=== PATIENT | female | born 1970 | race Caucasian/White ===

== ENCOUNTER → 2020-09-01 14:20 | Outpatient (BNVA) | payer OTHER, SELFPAY | PROVIDERS: Visit Provider Nurse Practitioner Family | DX: Z76.89 Persons encountering health services in other specified circumstances (principal) ==

== ENCOUNTER 2020-09-06 15:16 | Outpatient (REF) | payer OTHER, SELFPAY ==
[2020-09-06 15:53] LABS: Hematocrit 35.9 % (37-47); Hemoglobin 12.3 g/dl (12.0-16.0); Mean Corpuscular HGB Conc 34.3 g/dl (31.0-35.0); Mean Corpuscular Hemoglobin 32.3 pg (27.0-33.0); Mean Corpuscular Volume 94.2 fL (80-98); Mean Platelet Volume 9.2 fL (9.4-12.3); Platelet Count 271 X10*3/uL (160-400); Red Blood Count 3.81 X10*6/uL (4.20-5.50); Red Cell Distribution Width 12.1 % (11.0-16.0); White Blood Count 6.4 X10*3/uL (4.8-10.8)
[2020-09-06 16:26] LABS: Alanine Aminotransferase 13 U/L (0-31); Albumin Level 4.1 g/dL (3.5-5.0); Alkaline Phosphatase 49 U/L (39-117); Anion Gap 10 (12-20); Aspartate Amino Transferase 15 U/L (5-31); Bilirubin Total 0.4 mg/dL (0.0-1.0); Blood Urea Nitrogen 14 mg/dL (9-16); Calcium 8.6 mg/dL (8.4-10.2); Carbon Dioxide 26 mmol/L (22-29); Chloride 105 mmol/L (96-108); Estimated Glomerular Filt Rate > 60; Glucose Random 119 mg/dL (60-115); Potassium 4.1 mmol/l (3.3-5.1); Sodium 137 mmol/L (135-145); Total Protein 6.8 g/dL (6.5-8.0)
== END 2020-09-06 15:17 | disposition home or self-care (01) ==
LOC: HO.LAB 15:16
PROVIDERS: PCP Physician Assistant Medical; Visit Provider Nurse Practitioner Family
DX: Z12.11 Encounter for screening for malignant neoplasm of colon (principal)
CPT/HCPCS: 36415; 80053; 85027

== ENCOUNTER 2020-10-05 09:04 | Outpatient (REF) | payer OTHER, SELFPAY ==
[2020-10-05 11:03] LABS: Cholesterol 226 mg/dL; HDL Cholesterol 55 mg/dL; LDL Cholesterol Calculated 149 mg/dl; Triglycerides 114 mg/dL
== END 2020-10-05 09:05 | disposition home or self-care (01) ==
LOC: HO.LAB 09:04
PROVIDERS: PCP Nurse Practitioner; Visit Provider Nurse Practitioner
DX: E78.5 Hyperlipidemia, unspecified (principal)
CPT/HCPCS: 80061

== ENCOUNTER 2020-10-10 07:15 | Outpatient (REF) | payer OTHER, SELFPAY | END 2020-10-10 07:16 | disposition home or self-care (01) | LOC: HO.LAB 07:15 | PROVIDERS: Visit Provider Internal Medicine | DX: Z20.828 Contact with and (suspected) exposure to other viral communicable diseases (principal) | CPT/HCPCS: C9803; U0003 ==

== ENCOUNTER 2020-10-17 15:25 | Outpatient (REF) | payer OTHER, SELFPAY ==
--- NOTE | 2020-10-17 15:28 | MM_ITS ---
EXAMINATION: MM SCREENING DIGITAL BREAST TOMOSYNTHESIS, BILATERAL CLINICAL INFORMATION: Screening. Asymptomatic. The lifetime risk of breast cancer based on the Tyrer-Cuzick Model is 14%. COMPARISON: Mammography: 08/28/2019, 08/11/2018, 07/15/2017, 07/11/2016 TECHNIQUE: Digital breast tomosynthesis is performed in both the craniocaudal and mediolateral oblique views along with computer-aided detection (CAD). Synthesized 2D images are generated from the tomosynthesis. Additional exaggerated left CC view is provided. FINDINGS: The breasts are heterogeneously dense, which may obscure small masses (ACR BI-RADS breast composition Category c). There is a fine fibronodular parenchymal pattern. There are no abnormal calcifications. The bilateral axilla and skin contours are unremarkable. Right breast shows no interval mass or architectural abnormality or developing density. Left breast has curvilinear focal asymmetric density posterior inferior medial quadrant measuring approximately 0.5 x 0.5 x 1.2 cm. There is questionable fatty tissue composition centrally within the density on the CC tomography. The finding represents change from prior exams. Patient will be recalled for additional imaging. MM/MM tomosynthesis screening BI IMPRESSION: 1. Left: Focal asymmetric density posterior inferior medial breast 0.5 x 0.5 x 1.2 cm. 2. Right: No mammographic evidence of malignancy. ASSESSMENT: BI-RADS 0: Incomplete - Need Additional Imaging Evaluation RECOMMENDATION: 1. Additional views of the left breast (spot 3-D CC, spot 3-D ML). 2. Targeted ultrasound left breast. 3. Radiology department staff will contact the patient for additional imaging. This patient's information was entered into a reminder system with a target due date for their next mammogram.
== END 2020-10-17 15:26 | disposition home or self-care (01) ==
LOC: HO.MAMMO 15:25
PROVIDERS: PCP Physician Assistant Medical; Visit Provider Internal Medicine
DX: Z12.31 Encounter for screening mammogram for malignant neoplasm of breast (principal)
CPT/HCPCS: 77063; 77067

== ENCOUNTER 2020-11-03 08:58 | Outpatient (REF) | payer OTHER, SELFPAY ==
--- NOTE | 2020-11-03 09:04 | US_ITS ---
EXAMINATION: MM DIAGNOSTIC DIGITAL BREAST TOMOSYNTHESIS, RIGHT US DIAGNOSTIC ULTRASOUND BREAST, RIGHT CLINICAL INFORMATION: Recall from screening for curvilinear focal asymmetric density posterior inferior medial left breast with questionable central fatty tissue composition. TC score 14%. COMPARISON: Mammography: 10/17/2020, 08/28/2019, 08/11/2018 TECHNIQUE: Digital breast tomosynthesis is performed. 2D images are generated from the tomosynthesis. The following views are obtained: Spot CC, spot ML x2, spot MLO. Ultrasound left breast lower inner quadrant. Grayscale imaging and color Doppler are performed without and with harmonics. FINDINGS: There are scattered areas of fibroglandular density (ACR BI-RADS breast composition Category b). This area splays on the spot CC view and there is central fatty attenuation suggesting either an oil cyst and/or island of mixed fatty/fibroglandular tissue. The finding is not demonstrated on the spot ML or spot MLO views with certainty. In retrospect, the MLO projections from 2018 and 2017 suggest similar oval asymmetry inferior posterior breast, although not as well appreciated on prior CC views. Targeted ultrasound left breast demonstrates benign appearing oval area 1.1 x 0.7 x 0.4 cm with central tubular hypoechoic component and subtle surrounding peripheral hyperechogenic component. No posterior shadowing. The ultrasound appearance is suggestive of fat necrosis. Results are discussed with the patient and her spouse at time of visit. The findings are benign appearing. Patient does not recall prior trauma to the inferomedial left breast. As a precaution, short interval 6 month follow up left diagnostic 3D mammography is recommended to confirm stability. US/US breast LT limited IMPRESSION: Additional views and targeted ultrasound demonstrates benign-appearing finding in the posterior inferior medial left breast, possibly sequela from prior remote trauma. ASSESSMENT: BI-RADS 3: Probably Benign RECOMMENDATION: Diagnostic 3-D mammography left breast in 6 months. This patient's information was entered into a reminder system with a target due date for their next mammogram.
== END 2020-11-03 08:59 | disposition home or self-care (01) ==
LOC: HO.MAMMO 08:58
PROVIDERS: PCP Obstetrics & Gynecology; Visit Provider Internal Medicine
DX: R92.2 Inconclusive mammogram (principal)
CPT/HCPCS: 76642; 77065

== ENCOUNTER 2020-12-08 10:59 | Day surgery (SDC) | payer OTHER, SELFPAY ==
[2020-10-24 18:44] VITALS: BMI 24.7
--- NOTE | 2020-12-07 09:26 | P.CONAN_ITS ---
Documented by User: Kina Key 12/07/20 09:27 HPI - Anesthesia Eval Consult details Narrative: 50yo F for Colonoscopy PMFSH Past Medical History Medical History HTN (hypertension) Hyperlipidemia Seasonal allergies Family History Family History Mother Hx of cancer of lung Father Hx of congestive heart failure Surgical History Surgical History Cystocele History of cholecystectomy Recent surgical procedure on lower extremity Social History Social History Household Members: Spouse and Children Housing: House Alcohol intake: current Alcohol intake frequency: holidays/special occasions only Smoking Status: Never smoker Second Hand Smoke Exposure: No Use of substances other than those prescribed or required for medical reasons: No Advance Directives: No Advance Directives Information Provided: No Advance Directives on File: No Recently lost weight without trying: Unsure service: No Current occupational status: employed 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 Allergies Allergy/AdvReac Type Severity Reaction Status Date / Time amoxicillin [AMOXICILLIN] Allergy Mild RASH Verified 12/08/20 11:51 Home Medications Medication Instructions Recorded Confirmed Type cetirizine 10 mg capsule 10 mg PO DAILY 09/01/20 10/24/20 History lisinopril 5 mg tablet 5 mg PO DAILY 09/01/20 10/24/20 History montelukast 10 mg tablet 10 mg PO DAILY 09/01/20 10/24/20 History Exam Exam Date and Time: December 07, 2020 0926 Height,Weight and Vital Signs: Height 5 ft 3 in Weight 63.503 kg Pertinent Lab Results Pertinent Lab Results: Laboratory Tests 09/06/20 09/06/20 15:45 15:45 WBC 6.4 Hgb 12.3 Hct 35.9 L Plt Count 271 Sodium 137 Potassium 4.1 Chloride 105 Carbon Dioxide 26 BUN 14 Creatinine 0.82 Assessment and Plan Assessment Anesthesia Assessment: Chart Reviewed Documented by User: Pily Barnett 12/08/20 12:21 [facility] Past Medical History Medical History HTN (hypertension) Hyperlipidemia Seasonal allergies Family History Family History Mother Hx of cancer of lung Father Hx of congestive heart failure Family history of problems with anesthesia: No Surgical History Surgical History Cystocele History of cholecystectomy Recent surgical procedure on lower extremity History of Problems with Anesthesia: No Social History Social History Household Members: Spouse and Children Housing: House Alcohol intake: current Alcohol intake frequency: holidays/special occasions only Smoking Status: Never smoker Second Hand Smoke Exposure: No Use of substances other than those prescribed or required for medical reasons: No Advance Directives: No Advance Directives Information Provided: No Advance Directives on File: No Recently lost weight without trying: Unsure service: No Current occupational status: employed 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 Meds Allergies Allergy/AdvReac Type Severity Reaction Status Date / Time amoxicillin [AMOXICILLIN] Allergy Mild RASH Verified 12/08/20 11:51 Home Medications Medication Instructions Recorded Confirmed Type cetirizine 10 mg capsule 10 mg PO DAILY 09/01/20 10/24/20 History lisinopril 5 mg tablet 5 mg PO DAILY 09/01/20 10/24/20 History montelukast 10 mg tablet 10 mg PO DAILY 09/01/20 10/24/20 History Exam Height,Weight and Vital Signs: Vital Signs Temp Pulse Resp BP Pulse Ox 12/08/20 11:26 97.8 F 76 16 105/72 99 Airway Mallampati Class: II TM Dist: >3cm Neck ROM: Full Heart: RRR Lungs: CTAB Assessment and Plan Assessment Anesthesia Assessment: Anesthesia Plan Discussed and Chart Reviewed Final Anesthetic Review NPO: Yes ASA Class: II Final Preanesthetic Review: No Changes in Pt Med Stat, Meds/Allgs Chart Reviewed, Consent Obtained/Reviewed and Anes Risks/Benef Reviewed Patient Risk: Low Procedure Risk: Low Assessment/Block/Sedation in SS: Assess/Block/Sedation-SS Anesthetic Plan Anesthetic Plan: MAC: Disposition: Standard PACU
[2020-12-08 11:26] VITALS: BP 105/72; PULSE 76; RESP 16; TEMP 36.6; O2SAT 99
[2020-12-08] MEDS: Lactated Ringers 1,000 ML 100 ML IVCONT (11:52)
--- NOTE | 2020-12-08 12:33 | MHC.SHP ---
Pre-Procedural Eval Section B Chief Complaint: Screening Relevant Family History (Specify if Yes): No Relevant Social History: None Present Medications: see Short Stay Collaborative assessment Medical History: Significant History (HTN (hypertension) Hyperlipidemia Seasonal allergies) History of Previous Operations: Relevant previous surgery/procedure and date(s) (Cystocele, History of cholecystectomy) Allergies: Allergies Allergy/AdvReac Type Severity Reaction Status Date / Time amoxicillin [AMOXICILLIN] Allergy Mild RASH Verified 12/08/20 11:51 Review of Systems Sugical H&P ROS: Negative: Constitution, Cardiovascular, Respiratory, Neurological, Psychiatric, Hem-Onc, Allergic/Immunologic, Gastrointestinal, Genitourinary, Musculoskeletal, Integumentary, Endocrine and Eyes/Ears/Nose/Throat Exam Surgical H&P Exam: Normal: HEENT, Normal: Heart, Normal: Lungs, Normal: Extremities, Normal: Abdomen, Normal: Skin and Normal: Neurological Plan Diagnosis/Plan: Unchanged I have reviewed the history and physical and performed a pertinent physical examination on my patient. No changes have occurred unless specified.
--- NOTE | 2020-12-08 12:34 | P.OP_ITS ---
Operative Note Operative Note Date of Service: 12/08/20 Narrative: Operative Information Procedure Description: Colonoscopy COLONOSCOPY Instrument: Olympus variable stiffness pediatric scope 190L Colonoscopy Monitoring: Vital signs and clinical assessment, continuous EKG monitoring, Pulse oximetry, Carbon Dioxide monitoring and blood pressure monitoring were done throughout the procedure. Colon withdrawal time was 9 minutes. Procedure: The patient was placed in the left lateral decubitis position and pre-procedure medications were administered. After a digital rectal examination of the ano-rectum, the video colonoscope was inserted into the rectum and advanced through the colon to the cecum/TI. The colonoscope was slowly withdrawn in a retrograde panoramic fashion and the colon mucosa was carefully examined including a retroflexed view of the rectum. Findings and interventions are described below. Procedure Difficulty:easy Findings: Terminal Ileum-normal Cecum:normal Ascending Colon: few scattered diverticula noted Transverse Colon -normal Descending Colon:normal Sigmoid Colon: many small diverticula seen Rectum: Retroflexion with medium sized internal hemorrhoids, grade I Anorectum - normal Colon preparation: [place] Bowel Preparation Scale Right colon; 3 Transverse colon: 3 Left colon; 3 (0 = Unprepared colon segment with mucosa not seen due to solid stool that cannot be cleared. 1 = Portion of mucosa of the colon segment seen, but other areas of the colon segment not well seen due to staining, residual stool and/or opaque liquid. 2 = Minor amount of residual staining, small fragments of stool and/or opaque liquid, but mucosa of colon segment seen well. 3 = Entire mucosa of colon segment seen well with no residual staining, small fragments of stool or opaque liquid) Impression and Post Procedure Diagnosis: internal hemorrhoids diverticular disease Plan: High fiber diet leaflet Avoid straining at stool, epsom salts and sitz bath, anusol supps or cream Repeat Colonoscopy in 10 years or earlier if clinically indicated Above findings were reviewed with the patient and relevant handouts were provided if indicated.
--- NOTE | 2020-12-08 12:34 | PM.OP ---
Brief Operative Note Date of Service: 12/08/20 Pre-op diagnosis: colon screening Post-op diagnosis: same Procedure: see op note Surgeon: Jesus Baum MD Anesthesia: MAC Estimated blood loss (mL): 0 Condition: stable Disposition: PACU
[2020-12-08 13:20] VITALS: BP 94/54; PULSE 83; RESP 16; TEMP 36.1; O2SAT 100
[2020-12-08 13:35] VITALS: BP 102/68; PULSE 89; RESP 16; TEMP 36.1; O2SAT 98
--- NOTE | 2020-12-08 14:11 | HO.POSTANES ---
Post Anesthesia Evaluation Post Anesthesia Evaluation Vital Signs: Vital Signs Temp Pulse Resp BP Pulse Ox 12/08/20 13:35 97.0 F 89 16 102/68 98 12/08/20 13:20 97 F 83 16 94/54 L 100 12/08/20 11:26 97.8 F 76 16 105/72 99 Anesthesia: General (TIVA) Mental Status: Awake Pain Control: Satisfactory Nausea/Vomiting: None Hydration: Adequate Anesthesia-Related Issues: No Anes. Related Issues
== END 2020-12-08 14:13 | disposition home or self-care (01) ==
PROVIDERS: PCP Nurse Practitioner; Visit Provider Internal Medicine Gastroenterology
PROC: 0DJD8ZZ Inspection of Lower Intestinal Tract, Via Natural or Artificial Opening Endoscopic (ICD-10-PCS; CPT 45378; principal; 2020-12-08 12:10)
DX: Z12.11 Encounter for screening for malignant neoplasm of colon (principal); K57.30 Diverticulosis of large intestine without perforation or abscess without bleeding; K64.0 First degree hemorrhoids; I10 Essential (primary) hypertension; Z90.49 Acquired absence of other specified parts of digestive tract; Z79.899 Other long term (current) drug therapy; Z88.0 Allergy status to penicillin
CPT/HCPCS: 45378

== ENCOUNTER → 2021-01-04 14:39 | Outpatient (BNVA) | payer OTHER, SELFPAY | PROVIDERS: PCP Nurse Practitioner; Visit Provider Nurse Practitioner Family ==

== ENCOUNTER 2021-05-18 12:56 | Outpatient (REF) | payer OTHER, SELFPAY ==
--- NOTE | ~2021-05-18 | MM_ITS ---
EXAMINATION: MM DIAGNOSTIC DIGITAL BREAST TOMOSYNTHESIS, LEFT CLINICAL INFORMATION: Left breast density. COMPARISON: Mammography: 11/03/2020 and studies dating back to 06/18/2012. TECHNIQUE: Digital breast tomosynthesis is performed. 2D images are generated from the tomosynthesis. The following views are obtained: Full-field mediolateral oblique and craniocaudal views. FINDINGS: The breasts are extremely dense, which lowers the sensitivity of mammography (ACR BI-RADS breast composition Category d). There is a stable parenchymal pattern present with no new abnormal dominant mass or suspicious grouping of microcalcifications. Density about the inferior medial aspect of the left breast is again evident. Results are provided to the patient at time of visit by the technologist. MM/MM tomosynthesis added views L IMPRESSION: Stable appearance of the left breast. Recommend 6 month follow-up bilateral mammography. ASSESSMENT: BI-RADS 3: Probably Benign. RECOMMENDATION: Diagnostic mammography in 6 months. This patient's information was entered into a reminder system with a target due date for their next mammogram.
== END 2021-05-18 12:57 | disposition home or self-care (01) ==
LOC: HO.MAMMO 12:56
PROVIDERS: PCP Internal Medicine; Visit Provider Internal Medicine
DX: R92.2 Inconclusive mammogram (principal)
CPT/HCPCS: 77061; 77065

== ENCOUNTER 2021-08-01 07:36 | Outpatient (REF) | payer OTHER, SELFPAY ==
[2021-08-01 10:40] LABS: Hematocrit 36.3 % (37-47); Hemoglobin 12.5 g/dl (12.0-16.0); Mean Corpuscular HGB Conc 34.4 g/dl (31.0-35.0); Mean Corpuscular Volume 92.8 fL (80-98); Mean Platelet Volume 9.5 fL (9.4-12.3); Platelet Count 280 X10*3/uL (160-400); Red Blood Count 3.91 X10*6/uL (4.20-5.50); Red Cell Distribution Width 12.2 % (11.0-16.0); White Blood Count 6.3 X10*3/uL (4.8-10.8)
[2021-08-01 11:05] LABS: Alanine Aminotransferase 18 U/L (0-31); Albumin Level 4.2 g/dL (3.5-5.0); Alkaline Phosphatase 53 U/L (39-117); Anion Gap 11 (12-20); Aspartate Amino Transferase 18 U/L (5-31); Bilirubin Total 0.6 mg/dL (0.0-1.0); Blood Urea Nitrogen 13 mg/dL (9-16); Calcium 9.8 mg/dL (8.4-10.2); Carbon Dioxide 26 mmol/L (22-29); Chloride 104 mmol/L (96-108); Cholesterol 177 mg/dL; Estimated Glomerular Filt Rate > 60; Glucose Fasting 95 mg/dL (60-99); HDL Cholesterol 53 mg/dL; LDL Cholesterol Calculated 90 mg/dl; Potassium 4.3 mmol/L (3.3-5.1); Sodium 137 mmol/L (135-145); Total Protein 6.8 g/dL (6.5-8.0); Triglycerides 172 mg/dL
== END 2021-08-01 07:37 | disposition home or self-care (01) ==
LOC: HO.10HDL 07:36
PROVIDERS: Visit Provider Internal Medicine
DX: I10 Essential (primary) hypertension (principal); E78.00 Pure hypercholesterolemia, unspecified
CPT/HCPCS: 36415; 80053; 80061; 85027

== ENCOUNTER 2021-11-21 12:30 | Outpatient (REF) | payer OTHER, SELFPAY ==
--- NOTE | ~2021-11-21 | MM_ITS ---
EXAMINATION: MM DIAGNOSTIC DIGITAL BREAST TOMOSYNTHESIS, BILATERAL CLINICAL INFORMATION: Due for yearly. Also follow-up probable benign focal asymmetric density posterior inferior medial left breast, possibly sequela from prior remote trauma or underwater bra. The lifetime risk of breast cancer based on the Tyrer-Cuzick Model is 16%. COMPARISON: Mammography: 05/18/2021, 11/03/2020, 10/17/2020 (BI-RADS 0), 08/28/2019; targeted left breast ultrasound 11/03/2020. TECHNIQUE: Digital breast tomosynthesis is performed in both the craniocaudal and mediolateral oblique views along with computer-aided detection (CAD). Synthesized 2D images are generated from the tomosynthesis. FINDINGS: The breasts are heterogeneously dense, which may obscure small masses (ACR BI-RADS breast composition Category c). Fibronodular parenchymal pattern is similar to prior studies. There is no interval mass or architectural abnormality or developing density. The nodular focal asymmetry with associated central fatty composition posterior inferior medial left breast is stable in size and contour. Left breast will be reassessed again in 6 months. Neither breast shows abnormal calcifications. The axilla and skin contours are unremarkable. Results are discussed with the patient at time of visit. MM/MM tomosynthesis diagnostic BI IMPRESSION: 1. Left: Probable benign asymmetric density posterior inferior medial breast stable. 2. Right: No mammographic evidence of malignancy. ASSESSMENT: BI-RADS 3: Probably Benign RECOMMENDATION: Diagnostic left mammography in 6 months. This patient's information was entered into a reminder system with a target due date for their next mammogram.
== END 2021-11-21 12:31 | disposition home or self-care (01) ==
LOC: HO.MAMMO 12:30
PROVIDERS: Absent Provider Obstetrics & Gynecology; PCP Internal Medicine; Visit Provider Internal Medicine
DX: R92.2 Inconclusive mammogram (principal)
CPT/HCPCS: 77062; 77066

== ENCOUNTER 2022-05-29 12:49 | Outpatient (REF) | payer OTHER, SELFPAY ==
--- NOTE | ~2022-05-29 | MM_ITS ---
EXAMINATION: MM DIAGNOSTIC DIGITAL BREAST TOMOSYNTHESIS, LEFT CLINICAL INFORMATION: Short interval six-month follow-up probable benign focal asymmetric density posterior inferior medial left breast, possibly sequela from prior remote trauma or underwire bra. The lifetime risk of breast cancer based on the Tyrer-Cuzick Model is 15%. COMPARISON: Mammography: 11/21/2021, 05/18/2021, 11/03/2020, 10/17/2020 (BI-RADS 0), 08/28/2019, 08/11/2018, 07/15/2017, 07/11/2016; left breast ultrasound 11/03/2020. TECHNIQUE: Digital breast tomosynthesis is performed in both the craniocaudal and mediolateral oblique views along with computer-aided detection (CAD). Synthesized 2D images are generated from the tomosynthesis. Additional spot left MLO view is provided. FINDINGS: The breasts are heterogeneously dense, which may obscure small masses (ACR BI-RADS breast composition Category c). There is fine fibronodular parenchymal pattern similar to prior exams. There is no interval mass or architectural abnormality. The probable benign density for follow-up posterior lower inner quadrant with central fatty tissue composition is stable to borderline decreased since 10/17/2020. There is no developing density or interval architectural changes. Finding will be reassessed again at time of annual bilateral mammography, due in 6 months. Results are discussed with the patient at time of visit. MM/MM tomosynthesis diagnostic LT IMPRESSION: The asymmetric density with central fatty tissue composition posterior inferior medial left breast is stable to borderline decreased since 10/17/2020. ASSESSMENT: BI-RADS 3: Probably Benign RECOMMENDATION: Diagnostic mammography at time of annual bilateral exam, due in 6 months. This patient's information was entered into a reminder system with a target due date for their next mammogram.
== END 2022-05-29 12:50 | disposition home or self-care (01) ==
LOC: HO.MAMMO 12:49
PROVIDERS: Visit Provider Internal Medicine
DX: R92.2 Inconclusive mammogram (principal)
CPT/HCPCS: 77061; 77065

== ENCOUNTER 2022-06-01 10:56 | Outpatient (REF) | payer OTHER, SELFPAY ==
--- NOTE | ~2022-06-01 | US_ITS ---
EXAMINATION: US DIAGNOSTIC ULTRASOUND BREAST, LEFT CLINICAL INFORMATION: Follow-up probable benign focal asymmetric density posterior inferior medial left breast. COMPARISON: Targeted left breast ultrasound 11/03/2020; mammography 05/29/2022 and prior exams dating back to 06/30/2015. TECHNIQUE: Ultrasound left breast is targeted to the posterior lower inner quadrant using grayscale imaging and color Doppler without and with harmonics. FINDINGS: The ultrasound finding for follow-up is similar in size, contour, and echogenicity to prior ultrasound 11/03/2020. The lesion measures 1.1 cm in greatest dimension and has central tubular hypoechoic component. The margins appear smooth. There is no increased or decreased through transmission of sound and no associated color flow. This likely corresponds to the finding on mammography under surveillance. Results are discussed with the patient and her spouse at time of visit. The ultrasound finding likely corresponds to the mammographic lesion. There is no decrease of the mammographic finding during surveillance to confirm simple fat necrosis. Differential considerations include focal fibrosis, PASH, chronic fat necrosis, or other lesion. The lack of change during surveillance is reassuring. Management options were discussed. Patient is in favor of ultrasound-guided core biopsy to confirm benignity. US/US breast LT limited IMPRESSION: -Ultrasound finding is stable from prior targeted ultrasound 11/03/2020. Finding likely corresponds to the mammographic lesion under surveillance, possibly focal fibrosis, chronic fat necrosis, or PASH. ASSESSMENT: BI-RADS 4: Suspicious (subcategory 4A: Low suspicion for malignancy) RECOMMENDATION: Ultrasound-guided core biopsy left breast posterior lower inner quadrant. This patient's information was entered into a reminder system with a target due date for their next mammogram.
== END 2022-06-01 10:57 | disposition home or self-care (01) ==
LOC: HO.MAMMO 10:56
PROVIDERS: Visit Provider Internal Medicine
DX: R92.2 Inconclusive mammogram (principal)
CPT/HCPCS: 76642

== ENCOUNTER 2022-06-07 10:20 | Outpatient (REF) | payer OTHER, SELFPAY ==
--- NOTE | ~2022-06-07 | MM_ITS ---
PROCEDURE: US-GUIDED BREAST BIOPSY, LEFT CLINICAL INFORMATION: Indeterminate mass on ultrasound. COMPARISON: 06/01/2022 and studies dating back to 07/11/2016. PROCEDURAL DETAILS: The details of the procedure, as well as the risks, benefits, and alternatives to the procedure were explained to the patient in detail and all of her questions were answered, after which written informed consent was obtained. Site and side were confirmed. Prior to the procedure, sonography revealed a heterogeneous region with hyperechoic outer portion and tubular hypoechoic region about the deep lower inner breast. A time-out was performed, the lesion intended for biopsy was targeted, and the skin of the left breast was then prepped and draped in the usual sterile fashion. Using sonographic guidance, sterile technique, and 1% lidocaine without epinephrine for local anesthesia, multiple automated core biopsies were obtained through the targeted area with a 14G spring loaded Achieve core biopsy device. There was real-time confirmation of appropriate needle passage. Sampling was documented. At the completion of tissue sampling, a single coil-shaped metallic clip was deposited at the biopsy site. There was no evidence of immediate complication. SPECIMEN: An appropriate sample was obtained. DIGITAL POSTPROCEDURE MAMMOGRAPHY: Breast density: The tissue is heterogeneously dense which may obscure small masses. BI-RADS version 5, category C. There are no new mammographic findings demonstrated. The postprocedure 2-view direct digital mammogram reveals satisfactory positioning of the biopsy clip. The clip corresponds to the mammographic abnormality that was seen. The patient tolerated the procedure well and, after assuring adequate hemostasis, was discharged in good condition after reviewing postbiopsy breast care instructions. Final pathology results are pending. MM/MM diagnostic mammo unilat LT IMPRESSION: 1. No immediate complication from ultrasound-guided percutaneous biopsy left breast. 2. Ultrasound was used to localize and guide marker clip placement. 3. The 2-view direct digital postprocedure mammogram reveals satisfactory positioning of the biopsy clip. 4. Final pathology results are pending. A separate report with final recommendations will be issued once these results are made available.
[2022-06-07] MEDS: Lidocaine HCl 1 % 20 ML VIAL 10 ML SUBCUT (11:52)
== END 2022-06-07 10:21 | disposition home or self-care (01) ==
LOC: HO.MAMMO 10:20
PROVIDERS: Visit Provider Surgery
DX: N63.24 Unspecified lump in the left breast, lower inner quadrant (principal)
CPT/HCPCS: 19083; 77062; 77065; 88305; A4648

== ENCOUNTER 2022-12-03 13:00 | Outpatient (REF) | payer BC, SELFPAY ==
--- NOTE | ~2022-12-03 | MM_ITS ---
EXAMINATION: MM DIAGNOSTIC DIGITAL BREAST TOMOSYNTHESIS, BILATERAL CLINICAL INFORMATION: Due for yearly. Benign left breast ultrasound-guided biopsy 06/07/2022 (benign breast tissue with fibrosis and patchy pseudoangiomatous stromal hyperplasia; no atypia or malignancy identified. The lifetime risk of breast cancer based on the Tyrer-Cuzick Model is 16%. COMPARISON: Mammography: 06/07/2022, 05/29/2022, 11/21/2021, 05/18/2021, 11/03/2020, 10/17/2020, 08/28/2019. TECHNIQUE: Digital breast tomosynthesis is performed in both the craniocaudal and mediolateral oblique views along with computer-aided detection (CAD). Synthesized 2D images are generated from the tomosynthesis. FINDINGS: The breasts are heterogeneously dense, which may obscure small masses (ACR BI-RADS breast composition Category c). Findings fibronodular parenchymal pattern is similar to prior studies. There is no developing density or interval mass or architectural abnormality or abnormal calcifications. The axilla and skin contours are unremarkable. There is a biopsy clip marker posterior lower inner left breast overlying incidental chronic parenchymal density stable to slightly decreased. Results are discussed with the patient at time of visit. MM/MM tomosynthesis diagnostic BI IMPRESSION: No mammographic evidence of malignancy. ASSESSMENT: BI-RADS 2: Benign RECOMMENDATION: Routine annual mammography screening. This patient's information was entered into a reminder system with a target due date for their next mammogram.
== END 2022-12-03 13:01 | disposition home or self-care (01) ==
LOC: HO.MAMMO 13:00
PROVIDERS: Visit Provider Internal Medicine
DX: R92.2 Inconclusive mammogram (principal)
CPT/HCPCS: 77062; 77066

== ENCOUNTER 2022-12-27 08:06 | Outpatient (REF) | payer BC, SELFPAY ==
[2022-12-27 08:19] LABS: MANUAL DIFF FLAG NO
[2022-12-27 08:36] LABS: Basophils Percent Auto 0.8 % (0-2); Eosinophils Absolute Auto 0.1 X10*3/uL (0.0-0.4); Eosinophils Percent Auto 1.9 % (0-4); Hematocrit 39.4 % (37.0-47.0); Hemoglobin 13.3 g/dl (12.0-16.0); Imm Gran Abs Auto 0.01 X10*3/uL (0.00-0.03); Imm Gran Pct Auto 0.2 % (0.0-0.4); Lymphocytes Absolute Auto 0.6 X10*3/uL (1.2-4.9); Lymphocytes Percent Auto 11.5 % (20-40); Mean Corpuscular HGB Conc 33.8 g/dl (31.0-35.0); Mean Corpuscular Hemoglobin 30.8 pg (27.0-33.0); Mean Corpuscular Volume 91.2 fL (80.0-98.0); Mean Platelet Volume 8.9 fL (9.4-12.3); Monocytes Absolute Auto 0.5 X10*3/uL (0.1-1.2); Monocytes Percent Auto 8.8 % (2-11); Neutrophils Percent Auto 76.8 % (45-73); Platelet Count 282 X10*3/uL (160-400); Red Blood Count 4.32 X10*6/uL (4.20-5.50); Red Cell Distribution Width 12.4 % (11.0-16.0); White Blood Count 5.2 X10*3/uL (4.8-10.8)
[2022-12-27 09:23] LABS: Alanine Aminotransferase 17 U/L (0-31); Albumin Level 4.2 g/dL (3.5-5.0); Alkaline Phosphatase 73 U/L (39-117); Anion Gap 16 (12-20); Aspartate Amino Transferase 18 U/L (5-31); Blood Urea Nitrogen 14 mg/dL (9-16); Calcium 9.2 mg/dL (8.4-10.2); Carbon Dioxide 23 mmol/L (22-29); Chloride 106 mmol/L (96-108); Cholesterol 148 mg/dL; Estimated Glomerular Filt Rate > 60; Glucose Random 95 mg/dL (60-115); HDL Cholesterol 45 mg/dL; LDL Cholesterol Calculated 87 mg/dl; Potassium 4.6 mmol/L (3.3-5.1); Sodium 140 mmol/L (135-145); Total Protein 6.8 g/dL (6.5-8.0); Triglycerides 82 mg/dL
== END 2022-12-27 08:07 | disposition home or self-care (01) ==
LOC: HO.LAB 08:06
PROVIDERS: PCP Internal Medicine; Visit Provider Internal Medicine
DX: I10 Essential (primary) hypertension (principal); E78.00 Pure hypercholesterolemia, unspecified
CPT/HCPCS: 36415; 80053; 80061; 85025

== ENCOUNTER → 2023-12-04 07:45 | Outpatient (BNV) | payer BC, SELFPAY | PROVIDERS: PCP Internal Medicine; Visit Provider Radiology Diagnostic Radiology | DX: Z12.31 Encounter for screening mammogram for malignant neoplasm of breast (principal) | CPT/HCPCS: 77063; 77067 ==

== ENCOUNTER 2023-12-04 07:50 | Outpatient (REF) | payer BC, SELFPAY ==
--- NOTE | ~2023-12-04 | MM_ITS ---
EXAMINATION: MM SCREENING DIGITAL BREAST TOMOSYNTHESIS, BILATERAL CLINICAL INFORMATION: Screening. Asymptomatic. COMPARISON: Mammography: This study is compared with prior exams dating back to 2019. TECHNIQUE: Digital breast tomosynthesis is performed in both the craniocaudal and mediolateral oblique views along with computer-aided detection (CAD). Synthesized 2D images are generated from the tomosynthesis. FINDINGS: There are scattered areas of fibroglandular density (ACR BI-RADS breast composition Category b). There are no significant masses, abnormal calcifications, or other abnormalities. There is a tissue marker in the medial aspect of the left breast from prior benign percutaneous biopsy. MM/MM tomosynthesis screening BI IMPRESSION: No mammographic evidence of malignancy. ASSESSMENT: BI-RADS BI-RADS 2 - Benign Findings RECOMMENDATION: Routine annual mammography screening. 1 year F/U This examination should not preclude the clinical evaluation of a suspicious palpable abnormality. This patient's information was entered into a reminder system with a target due date for their next mammogram.
== END 2023-12-04 07:51 | disposition home or self-care (01) ==
LOC: HO.MAMMO 07:50
PROVIDERS: PCP Internal Medicine; Visit Provider Internal Medicine
DX: Z12.31 Encounter for screening mammogram for malignant neoplasm of breast (principal)
CPT/HCPCS: 77063; 77067

== ENCOUNTER 2024-12-09 07:45 | Outpatient (REF) | payer BC, SELFPAY | END 2024-12-09 07:46 | disposition home or self-care (01) | LOC: HO.MAMMO 07:45 | PROVIDERS: PCP Internal Medicine; Visit Provider Internal Medicine | DX: Z12.31 Encounter for screening mammogram for malignant neoplasm of breast (principal) | CPT/HCPCS: 77063; 77067 ==

== ENCOUNTER → 2024-12-09 07:45 | Outpatient (BNV) | payer BC, SELFPAY | PROVIDERS: PCP Internal Medicine; Visit Provider Internal Medicine | DX: Z12.31 Encounter for screening mammogram for malignant neoplasm of breast (principal) | CPT/HCPCS: 77063; 77067 ==

== ENCOUNTER 2025-01-24 22:35 | Emergency (ER) | payer BC, SELFPAY ==
--- NOTE | ~2025-01-24 | XR_ITS ---
CLINICAL HISTORY: chest pain 2 view chest x-ray Comparison: CR/GA - CHEST 2 VIEWS - 10/07/18 14:31 EST Findings: No consolidation or effusion. Heart size is normal. Dextroscoliosis of the thoracic spine. IMPRESSION: 1. No acute findings. This document has been electronically signed by: Wliton Lugo MD on 01/25/2025 01:07:16
[2025-01-24 22:40] VITALS: BP 117/83; BP 91/60; PULSE 70; RESP 16; TEMP 36.7; O2SAT 97; O2SAT 98; BMI 24.5
--- NOTE | 2025-01-24 22:54 | ECG_ITS ---
Test Reason : CP Blood Pressure : */* mmHG Vent. Rate : 68 BPM Atrial Rate : * BPM P-R Int : * ms QRS Dur : 82 ms QT Int : 406 ms P-R-T Axes : * -14 135 degrees QTcB Int : 431 ms Normal sinus rhythm Low voltage QRS Possible Lateral infarct , age undetermined Abnormal ECG No previous ECGs available Referred By: Generic ED Physician Electronically Signed By: SKINNY COLEMAN
[2025-01-24 23:35] VITALS: BP 112/67; PULSE 76
[2025-01-24 23:44] LABS: MANUAL DIFF FLAG NO
[2025-01-24 23:46] LABS: Basophils Percent Auto 0.4 % (0-2); Eosinophils Absolute Auto 0.2 X10*3/uL (0.0-0.4); Eosinophils Percent Auto 2.2 % (0-4); Hematocrit 33.5 % (37.0-47.0); Hemoglobin 11.6 g/dl (12.0-16.0); Imm Gran Abs Auto 0.01 X10*3/uL (0.00-0.03); Imm Gran Pct Auto 0.1 % (0.0-0.4); Lymphocytes Absolute Auto 2.2 X10*3/uL (1.2-4.9); Lymphocytes Percent Auto 31.2 % (20-40); Mean Corpuscular HGB Conc 34.6 g/dl (31.0-35.0); Mean Corpuscular Hemoglobin 31.6 pg (27.0-33.0); Mean Corpuscular Volume 91.3 fL (80.0-98.0); Monocytes Absolute Auto 0.6 X10*3/uL (0.1-1.2); Monocytes Percent Auto 8.2 % (2-11); Neutrophils Percent Auto 57.9 % (45-73); Platelet Count 241 X10*3/uL (160-400); Red Blood Count 3.67 X10*6/uL (4.20-5.50); Red Cell Distribution Width 12.1 % (11.0-16.0)
--- OUTSIDE RECORDS SUMMARY | 2025-01-24 23:52 | XMS_ITS ---
Author Organization [facility] Address [address] [place] [phone] Care Team Providers Care Track Machine Operator Repairer Name Role Phone CASPER JERNIGAN WILLIAMS Unavailable KATHY RENNER Unavailable [phone] REASON FOR VISIT PA Wegovy 2.4mg MEDICATIONS Medication SIG (Take, Route, Fr equency, Duration) Notes Start Date End Date Status Wegovy 2.4 MG/0.75ML 2.4mg Subcutaneous weekly for 30 days Active Encounters Encounter Location Date Provider Diagnosis [facility] [address] [place] [phone] 10/23/2024 DONNALULA RENNER Overweight E66.3 ASSESSMENTS Encounter Date Diagnosis Assessment Notes Treatment Notes Treatment Clinical Notes Section Notes 10/23/2024 Overweight (ICD-10 - E66.3) PLAN OF TREATMENT Medication Medication Name Sig Start Date Stop Date Notes Wegovy 2.4 MG/0.75ML 2.4mg Subcutaneous weekly for 30 days Next Appt Details Provider Name:Nya Louis, 0 02/10/2025 08:00:00 AM, [address] [place] [address], [facility] [address], [phone], Progress Notes * Ketan CARSONOB:[birth year] (54 yo F)Acc No.[id number]:10/23/2024 Patient:??Tiffanie CARSONn :1970?Age:54 Y?Sex:Fe male Address:[address] [facility] [place] [address] * Refills?? Refill Wegovy Solution Auto-injector, 2.4 MG/0.75ML, Subcutaneous, 4 Pen Needle, 2.4mg, weekly, 30 days, Refills=3 * true * Date:??
--- OUTSIDE RECORDS SUMMARY | 2025-01-24 23:52 | XMS_ITS ---
Author Organization [facility] Address [address] [place] [address] Care Team Providers Care Radiology Practitioner Assistant Name Role Phone CASPER JERNIGAN WILLIAMS Unavailable Nya Louis Unavailable [phone] REASON FOR VISIT PA follow up Encounters Encounter Location Date Provider Diagnosis [facility] [address] [place] [address] 11/03/2024 Nya Louis PLAN OF TREATMENT Next Appt Details Provider Name:Nya Louis, 0 02/10/2025 08:00:00 AM, [address] [facility] [address], [place], [phone], Progress Notes * Tiffanie CARSONnDOB:[birth year] (54 yo F)Acc No.[id number]:11/03/2024 Patient:??Zita CARSON :1970?Age:54 Y?Sex:Fe male [facility] [facility] [place] [address] * true * Date:??
--- OUTSIDE RECORDS SUMMARY | 2025-01-24 23:52 | XMS_ITS ---
Author Organization [facility] Address [address] [place] [id number] Care Team Providers Care Clinical Nursing Instructor Name Role Phone CASPER REREWILLIAMS Unavailable Nya Louis Unavailable [phone] ALLERGIES Allergen (clinical drug ingredient) Drug/Non Drug Allergy documented on EMR Reaction Allergy Type Onset Date Status Adhesive Unknown Allergy Active amoxicillin Amoxicillin Unknown Drug Allergy Act jose REASON FOR VISIT Patient is here for weight management follow up. SECA done. Previous weight was 134. Today the patient weight is 135. Pt states she is doing well. MEDICATIONS Medication SIG (Take, Route, Frequency, Duration) Notes Start Date End Date Status Ondansetron 4 MG 1 tablet on the tong ue and allow to dissolve Orally Once a day for 30 days 07/31/2023 Active Montelukast Sodium 10 MG 1 tablet Orally Once a day Active Rosuvastatin Calcium 10 MG 1 tablet Orally Once a day Active Cetirizine HCl 10 MG 1 tablet Orally Once a day Active Pantoprazole Sodium 20 MG 1 tablet Orally Once a day Active Probiotic 250 MG as directed Orally Active Wegovy 2.4 MG/0.75ML 0.75 mL Subcutaneou s weekly for 30 days Active Lisinopril 5 MG 1 tablet Orally Once a day Active VITAL SIGNS Blood pressure systolic 122 mm Hg 12/02/19 25 Blood pressure diastolic 84 mm Hg 025 Heart Rate 81 /min 12/02/2024 Height 62 in 12/02/2024 Weight 135 lbs 12/02/2024 BMI 24.69 kg/m2 12/02/2024 Oximetry 99 % 12/02/2024 Encounters Encounter Location Date Provider Diagnosis [address] [address] 12/02/2024 Nya Louis Overweight E66.3 ; Hypertension, unspecified type I10 ; Hyperlipidemia, unspecified E78.5 ; Vitamin D deficiency E55.9 and Weight loss counseling, encounter for Z71.3 ASSESSMENTS Encounter Date Diagnosis Assessment Notes Treatment Notes Treatment Clinical Notes Section Notes 12/02/2024 Overweight (ICD-10 - E66.3) #Overweight: 135.5 lbs, BMI 24.6 She has done fantastic on Wegovy 2.4 mg. Weight is stable. She is very close to her goal weight. Discussed maintenance strategies. Her insurance is giving her trouble about coverage. She will follow up with them and let us know. Discussed option of compounded in the office if needed again. Continue with protein intake with a goal of 70 to 80 g a day. Continue regular exercise. Follow up 6 weeks, sooner as needed. #Hypertension: Currently well controlled on current regimen. Follow with PCP. #Hyperlipidemia: Follow with PCP. Has been much improved #Vitamin D deficiency- On supplementation. The patient will continue exercise regimen with an emphasis on improving/increasing steps to at least 6,000-10,000 steps per day. Increasing cardio and strength training exercises as tolerated to improve weight loss and work on building muscle mass. Patient is committed to smarter eating with calorie counting and mindful eating. Limiting processed foods and carbohydrates and increasing leafy greens and lean proteins as well as fruits into their diet. Patient was counseled on the importance of eating local, organic food when possible. Patient has been counseled regarding effects of GLP/GIP-1 agonists and other FDA approved weight loss medications with regards to a multifactorial approach of weight loss as mentioned above and that the medication alone will not be sufficient to meet patients goals. We discussed holistic medication approach with emphasis on lifestyle modification. Discussed obesity as it increases risk of diabetes, cardiovascular disease, and/or organ damage. We spent a lot of time discussing the relationship between food, exercise, sleep, mental health, and obesity. We discussed the importance of having SECAs done every visit and having accountability done during these visits. That the scale is done to monitor not only weight loss but the body composition during medication management and healthy lifestyle changes. We discussed that if the patient is unable at times to financially afford this scale that we would rather waive the fee and have the scale done than have the patient not have the scale obtained. Will follow up with the patient in 4-6 weeks time to monitor weight loss. Case discussed with collaborating physician Tanner Mccarthy who reviewed the assessment and plan. Chart, medications, labs, vital signs reviewed. Dictation was accomplished with the use of [employer] voice recognition software, prone to medical misidentifications and grammatical errors. This is unintentional and the practitioner does try to identify and correct these, but some could still be present. Please do not hesitate to contact practitioner for clarification. All questions answered to patients satisfaction. Patient verbalized understanding of diagnosis and treatments explained. To call sooner prior to next visit it any questions/concerns arise. 12/02/2024 Hypertension, unspecified type (ICD-10 - I10) #Overweight: 135.5 lbs, BMI 24.6 She has done fantastic on Wegovy 2.4 mg. Weight is stable. She is very close to her goal weight. Discussed maintenance strategies. Her insurance is giving her trouble about coverage. She will follow up with them and let us know. Discussed option of compounded in the office if needed again. Continue with protein intake with a goal of 70 to 80 g a day. Continue regular exercise. Follow up 6 weeks, sooner as needed. #Hypertension: Currently well controlled on current regimen. Follow with PCP. #Hyperlipidemia: Follow with PCP. Has been much improved #Vitamin D deficiency- On supplementation. The patient will continue exercise regimen with an emphasis on improving/increasing steps to at least 6,000-10,000 steps per day. Increasing cardio and strength training exercises as tolerated to improve weight loss and work on building muscle mass. Patient is committed to smarter eating with calorie counting and mindful eating. Limiting processed foods and carbohydrates and increasing leafy greens and lean proteins as well as fruits into their diet. Patient was counseled on the importance of eating local, organic food when possible. Patient has been counseled regarding effects of GLP/GIP-1 agonists and other FDA approved weight loss medications with regards to a multifactorial approach of weight loss as mentioned above and that the medication alone will not be sufficient to meet patients goals. We discussed holistic medication approach with emphasis on lifestyle modification. Discussed obesity as it increases risk of diabetes, cardiovascular disease, and/or organ damage. We spent a lot of time discussing the relationship between food, exercise, sleep, mental health, and obesity. We discussed the importance of having SECAs done every visit and having accountability done during these visits. That the scale is done to monitor not only weight loss but the body composition during medication management and healthy lifestyle changes. We discussed that if the patient is unable at times to financially afford this scale that we would rather waive the fee and have the scale done than have the patient not have the scale obtained. Will follow up with the patient in 4-6 weeks time to monitor weight loss. Case discussed with collaborating physician Tanner Mccarthy who reviewed the assessment and plan. Chart, medications, labs, vital signs reviewed. Dictation was accomplished with the use of [employer] voice recognition software, prone to medical misidentifications and grammatical errors. This is unintentional and the practitioner does try to identify and correct these, but some could still be present. Please do not hesitate to contact practitioner for clarification. All questions answered to patients satisfaction. Patient verbalized understanding of diagnosis and treatments explained. To call sooner prior to next visit it any questions/concerns arise. 12/02/2024 Hyperlipidemia , unspecified (ICD-10 - E78.5) #Overweight: 135.5 lbs, BMI 24.6 She has done fantastic on Wegovy 2.4 mg. Weight is stable. She is very close to her goal weight. Discussed maintenance strategies. Her insurance is giving her trouble about coverage. She will follow up with them and let us know. Discussed option of compounded in the office if needed again. Continue with protein intake with a goal of 70 to 80 g a day. Continue regular exercise. Follow up 6 weeks, sooner as needed. #Hypertension: Currently well controlled on current regimen. Follow with PCP. #Hyperlipidemia: Follow with PCP. Has been much improved #Vitamin D deficiency- On supplementation. The patient will continue exercise regimen with an emphasis on improving/increasing steps to at least 6,000-10,000 steps per day. Increasing cardio and strength training exercises as tolerated to improve weight loss and work on building muscle mass. Patient is committed to smarter eating with calorie counting and mindful eating. Limiting processed foods and carbohydrates and increasing leafy greens and lean proteins as well as fruits into their diet. Patient was counseled on the importance of eating local, organic food when possible. Patient has been counseled regarding effects of GLP/GIP-1 agonists and other FDA approved weight loss medications with regards to a multifactorial approach of weight loss as mentioned above and that the medication alone will not be sufficient to meet patients goals. We discussed holistic medication approach with emphasis on lifestyle modification. Discussed obesity as it increases risk of diabetes, cardiovascular disease, and/or organ damage. We spent a lot of time discussing the relationship between food, exercise, sleep, mental health, and obesity. We discussed the importance of having SECAs done every visit and having accountability done during these visits. That the scale is done to monitor not only weight loss but the body composition during medication management and healthy lifestyle changes. We discussed that if the patient is unable at times to financially afford this scale that we would rather waive the fee and have the scale done than have the patient not have the scale obtained. Will follow up with the patient in 4-6 weeks time to monitor weight loss. Case discussed with collaborating physician Tanner Mccarthy who reviewed the assessment and plan. Chart, medications, labs, vital signs reviewed. Dictation was accomplished with the use of Applix voice recognition software, prone to medical misidentifications and grammatical errors. This is unintentional and the practitioner does try to identify and correct these, but some could still be present. Please do not hesitate to contact practitioner for clarification. All questions answered to patients satisfaction. Patient verbalized understanding of diagnosis and treatments explained. To call sooner prior to next visit it any questions/concerns arise. 12/02/2024 Vitamin D deficiency (ICD-10 - E55.9) #Overweight: 135.5 lbs, BMI 24.6 She has done fantastic on Wegovy 2.4 mg. Weight is stable. She is very close to her goal weight. Discussed maintenance strategies. Her insurance is giving her trouble about coverage. She will follow up with them and let us know. Discussed option of compounded in the office if needed again. Continue with protein intake with a goal of 70 to 80 g a day. Continue regular exercise. Follow up 6 weeks, sooner as needed. #Hypertension: Currently well controlled on current regimen. Follow with PCP. #Hyperlipidemia: Follow with PCP. Has been much improved #Vitamin D deficiency- On supplementation. The patient will continue exercise regimen with an emphasis on improving/increasing steps to at least 6,000-10,000 steps per day. Increasing cardio and strength training exercises as tolerated to improve weight loss and work on building muscle mass. Patient is committed to smarter eating with calorie counting and mindful eating. Limiting processed foods and carbohydrates and increasing leafy greens and lean proteins as well as fruits into their diet. Patient was counseled on the importance of eating local, organic food when possible. Patient has been counseled regarding effects of GLP/GIP-1 agonists and other FDA approved weight loss medications with regards to a multifactorial approach of weight loss as mentioned above and that the medication alone will not be sufficient to meet patients goals. We discussed holistic medication approach with emphasis on lifestyle modification. Discussed obesity as it increases risk of diabetes, cardiovascular disease, and/or organ damage. We spent a lot of time discussing the relationship between food, exercise, sleep, mental health, and obesity. We discussed the importance of having SECAs done every visit and having accountability done during these visits. That the scale is done to monitor not only weight loss but the body composition during medication management and healthy lifestyle changes. We discussed that if the patient is unable at times to financially afford this scale that we would rather waive the fee and have the scale done than have the patient not have the scale obtained. Will follow up with the patient in 4-6 weeks time to monitor weight loss. Case discussed with collaborating physician Tanner Mccarthy who reviewed the assessment and plan. Chart, medications, labs, vital signs reviewed. Dictation was accomplished with the use of [employer] voice recognition software, prone to medical misidentifications and grammatical errors. This is unintentional and the practitioner does try to identify and correct these, but some could still be present. Please do not hesitate to contact practitioner for clarification. All questions answered to patients satisfaction. Patient verbalized understanding of diagnosis and treatments explained. To call sooner prior to next visit it any questions/concerns arise. 12/02/2024 Weight loss counseling, encounter for (ICD-10 - Z71.3) #Overweight: 135.5 lbs, BMI 24.6 She has done fantastic on Wegovy 2.4 mg. Weight is stable. She is very close to her goal weight. Discussed maintenance strategies. Her insurance is giving her trouble about coverage. She will follow up with them and let us know. Discussed option of compounded in the office if needed again. Continue with protein intake with a goal of 70 to 80 g a day. Continue regular exercise. Follow up 6 weeks, sooner as needed. #Hypertension: Currently well controlled on current regimen. Follow with PCP. #Hyperlipidemia: Follow with PCP. Has been much improved #Vitamin D deficiency- On supplementation. The patient will continue exercise regimen with an emphasis on improving/increasing steps to at least 6,000-10,000 steps per day. Increasing cardio and strength training exercises as tolerated to improve weight loss and work on building muscle mass. Patient is committed to smarter eating with calorie counting and mindful eating. Limiting processed foods and carbohydrates and increasing leafy greens and lean proteins as well as fruits into their diet. Patient was counseled on the importance of eating local, organic food when possible. Patient has been counseled regarding effects of GLP/GIP-1 agonists and other FDA approved weight loss medications with regards to a multifactorial approach of weight loss as mentioned above and that the medication alone will not be sufficient to meet patients goals. We discussed holistic medication approach with emphasis on lifestyle modification. Discussed obesity as it increases risk of diabetes, cardiovascular disease, and/or organ damage. We spent a lot of time discussing the relationship between food, exercise, sleep, mental health, and obesity. We discussed the importance of having SECAs done every visit and having accountability done during these visits. That the scale is done to monitor not only weight loss but the body composition during medication management and healthy lifestyle changes. We discussed that if the patient is unable at times to financially afford this scale that we would rather waive the fee and have the scale done than have the patient not have the scale obtained. Will follow up with the patient in 4-6 weeks time to monitor weight loss. Case discussed with collaborating physician Tanner Mccarthy who reviewed the assessment and plan. Chart, medications, labs, vital signs reviewed. Dictation was accomplished with the use of [employer] voice recognition software, prone to medical misidentifications and grammatical errors. This is unintentional and the practitioner does try to identify and correct these, but some could still be present. Please do not hesitate to contact practitioner for clarification. All questions answered to patients satisfaction. Patient verbalized understanding of diagnosis and treatments explained. To call sooner prior to next visit it any questions/concerns arise. PLAN OF TREATMENT Medication Medication Name Sig Start Date Stop Date Notes Wegovy 2.4 MG/0.75ML 0.75 mL Subcutaneou s weekly for 30 days Next Appt Details Follow Up: 6 Weeks, Reason: wegovy Provider Name:Jabier Leach 02/10/2025 08:00:00 AM, [address] [facility], [facility] [address], [place], [phone], Progress Notes * Ketan CARSONOB:[birth year] (54 yo F)Acc No.[id number]:12/02/2024 Patient:??Zita CARSON Provider:??Nya Louis PA-C :1970?Age:54 Y?Sex:Fe male Date:12/02/2024 Address:[address] [place] [address] Subjective: * Chief Complaints: * ?1. Patient is here for weight management follow up. SECA done. Previous weight was 134. Today the patient weight is 135. Pt states she is doing well.. * HPI: ?Constitutional:? Zita is here today for a weight management f/u visit. She is currently on Wegovy 2.4. She was previously on compounded semaglutide titration. She is tolerating the Wegovy well without side effects. She did have trouble getting her prescription this past month and was off for a couple of weeks. Her insurance is requiring her to go through an online program to discuss with the provider she is trying to get further information however in the interim she was able to get a coupon code and fill her prescription last week with a $0 co-pay. ?Injection day: Saturday/Saturday. ?She has done quite well and responded quite nicely. ?No significant side effects reported ?12/02/24: 135.5, BMI 24.6 ?Weight last visit: 134.6, BMI 24.4 ?07/09/2023, weight 160 pounds, BMI 29 ?Diet: Breakfast lunch and dinner. Fruits and vegetables 2/3 meals of the day. ?Upping protein intake with shakes and protein-enhanced soups. ?Pt reports drinking 60 mL throughout the day. ?Reports taking probiotic, calcium, B12 complex, women's multivitamin. ?Exercise: Currently 10,000 steps daily. 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 ?Non-smoker. ?ETOH use: weekend use, 2 drinks per occasion. ?Sleep is good ?60 g- 70 g protein. 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 A1c 5.4. Vitamin D a little low at 26. Cholesterol total 182, triglycerides 178, HDL 53, LDL 98. CMP normal. CBC normal. ?SECA reviewed with patient. weight up 1 lb, Fat mass down1/ 2 lbs, muscle up 2 lbs. * ROS:?All Other Systems:?Review of Systems (ROS)??All others negative except those mentioned in HPI.? * Medical History:??HTN, High cholesterol, Weight gain, Gallbladder disease, Seasonal allergies, Basal carcinoma, Cystocele/recetocele. * Surgical History:??mohs surg logan . * Family History:??Father: dec eased.??Mother: .??1 brother(s) . 1 son(s) , 1 daughter(s) . .?? father mhx CHF mother MHX lung cancer brother mhx HTN, hyperlipidemis, mental health and heart disease 2 college aged children. * Social History:?principal [employer]. * Medications:??Taking Probiot ic 250 MG Capsule as directed Orally , Taking Lisinopril 5 MG Tablet 1 tablet Orally Once a day , Taking Rosuvastatin Calcium 10 MG Tablet 1 tablet Orally Once a day , Taking Pantoprazole Sodium 20 MG Tablet Delayed Release 1 tablet Orally Once a day , Taking Cetirizine HCl 10 MG Tablet 1 tablet Orally Once a day , Taking Montelukast Sodium 10 MG Tablet 1 tablet Orally Once a day , Taking Ondansetron 4 MG Tablet Disintegrating 1 tablet on the tongue and allow to dissolve Orally Once a day , Taking Wegovy 2.4 MG/0.75ML Solution Auto-injector 2.4mg Subcutaneous weekly , Medication List reviewed and reconciled with the patient * Allergies:??Amoxicillin, Adh esive. Objective: * Vitals:??HR:81/min, BP:122/8 4mm Hg, Wt:135lbs, BMI:24.69Index, Ht: 62 in, Oxygen sat %:99%. * Physical Examination:?General: Well appearing, well nourished, age appropriate in no acute distress. Speaking in full, clear sentences. ?SKIN: Warm, dry intact. No rashes/lesions. ?HEENT: Normocephalic atraumatic. EOM intact. No nystagmus noted. PERRLA. ?LUNGS: Clear to auscultation bilaterally, no wheezes, rales or rhonchi ?CARDIAC: Regular rate and rhythm, no murmurs, rubs or gallops. ?Extremities: Warm and well perfused. No edema noted. ?Neuro: CN II-XI grossly intact. Speaking in full sentences. Hearing intact. Assessment: * Assessment: 1.??Overweight - E66.3 (Prim kwabena)??2.??Hypertension, unspecified type - I10??3.??Hyperlipidemia, unspecified - E78.5??4.??Vitamin D deficiency - E55.9??5.??Weight loss counseling, encounter for - Z71.3?? #Overweight: 135.5 lbs, BMI 24.6 She has done fantastic on Wegovy 2.4 mg. Weight is stable. She is very close to her goal weight. Discussed maintenance strategies. Her insurance is giving her trouble about coverage. She will follow up with them and let us know. Discussed option of compounded in the office if needed again. Continue with protein intake with a goal of 70 to 80 g a day. Continue regular exercise. Follow up 6 weeks, sooner as needed. #Hypertension: Currently well controlled on current regimen. Follow with PCP. #Hyperlipidemia: Follow with PCP. Has been much improved #Vitamin D deficiency- On supplementation. The patient will continue exercise regimen with an emphasis on improving/increasing steps to at least 6,000-10,000 steps per day. Increasing cardio and strength training exercises as tolerated to improve weight loss and work on building muscle mass. Patient is committed to smarter eating with calorie counting and mindful eating. Limiting processed foods and carbohydrates and increasing leafy greens and lean proteins as well as fruits into their diet. Patient was counseled on the importance of eating local, organic food when possible. Patient has been counseled regarding effects of GLP/GIP-1 agonists and other FDA approved weight loss medications with regards to a multifactorial approach of weight loss as mentioned above and that the medication alone will not be sufficient to meet patients goals. We discussed holistic medication approach with emphasis on lifestyle modification. Discussed obesity as it increases risk of diabetes, cardiovascular disease, and/or organ damage. We spent a lot of time discussing the relationship between food, exercise, sleep, mental health, and obesity. We discussed the importance of having SECAs done every visit and having accountability done during these visits. That the scale is done to monitor not only weight loss but the body composition during medication management and healthy lifestyle changes. We discussed that if the patient is unable at times to financially afford this scale that we would rather waive the fee and have the scale done than have the patient not have the scale obtained. Will follow up with the patient in 4-6 weeks time to monitor weight loss. Case discussed with collaborating physician Tanner Mccarthy who reviewed the assessment and plan. Chart, medications, labs, vital signs reviewed. Dictation was accomplished with the use of [employer] voice recognition software, prone to medical misidentifications and grammatical errors. This is unintentional and the practitioner does try to identify and correct these, but some could still be present. Please do not hesitate to contact practitioner for clarification. All questions answered to patients satisfaction. Patient verbalized understanding of diagnosis and treatments explained. To call sooner prior to next visit it any questions/concerns arise. Plan: * Treatment: * Procedure Codes:??G0447 FCE- FCE BEHAVRL CNSL OBESITY 15 MIN, Modifiers: 59 * Follow Up:??6 Weeks (Reason: wegovy) * Images: Billing Information: * Visit Code:?? 01413 Office Visit, Est Pt., Level 4. * Procedure Codes:?? G0447 FCE-FCE BEHAVRL CNSL OBESITY 15 MIN. Modifiers: 59 * Sign off status: Completed true * Provider:??Nya Louis PA-C Date:??11/18 History and Physical Notes * HPI (History of Present Illness) Category Sub-Category Detail Notes Category Not es Constitutional Zita is here today for a weight management f/u visit. She is currently on Wegovy 2.4. She was previously on compounded semaglutide titration. She is tolerating the Wegovy well without side effects. She did have trouble getting her prescription this past month and was off for a couple of weeks. Her insurance is requiring her to go through an online program to discuss with the provider she is trying to get further information however in the interim she was able to get a coupon code and fill her prescription last week with a $0 co-pay. Injection day: Saturday/Saturday. She has done quite well and responded quite nicely. No significant side effects reported 12/02/24: 135.5, BMI 24.6 Weight last visit: 134.6, BMI 24.4 07/09/2023, weight 160 pounds, BMI 29 Diet: Breakfast lunch and dinner. Fruits and vegetables 2/3 meals of the day. Upping protein intake with shakes and protein-enhanced soups. Pt reports drinking 60 mL throughout the day. Reports taking probiotic, calcium, B12 complex, women's multivitamin. Exercise: Currently 10,000 steps daily. 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 Non-smoker. ETOH use: weekend use, 2 drinks per occasion. Sleep is good 60 g- 70 g protein. 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 A1c 5.4. Vitamin D a little low at 26. Cholesterol total 182, triglycerides 178, HDL 53, LDL 98. CMP normal. CBC normal. SECA reviewed with patient. weight up 1 lb, Fat mass down1/ 2 lbs, muscle up 2 lbs Physical Examination Category Sub-Category Detail Notes Section Note s General: Well appearing, well nourished, age appropriate in no acute distress. Speaking in full, clear sentences. SKIN: Warm, dry intact. No rashes/lesions. HEENT: Normocephalic atraumatic. EOM intact. No nystagmus noted. PERRLA. LUNGS: Clear to auscultation bilaterally, no wheezes, rales or rhonchi CARDIAC: Regular rate and rhythm, no murmurs, rubs or gallops. Extremities: Warm and well perfused. No edema noted. Neuro: CN II-XI grossly intact. Speaking in full sentences. Hearing intact.
--- OUTSIDE RECORDS SUMMARY | 2025-01-24 23:53 | XMS_ITS | Clinical Summary ---
Author Organization [facility] [address] [facility] Address [address] [place] [address] Phone Care Team Providers Care Caustic Purification Operator Name Role Phone Smitha Bennett MD Primary Care Provider [phone] Allergies Active Allergy Reactions Criticality Noted Date Comments Adhesive Unknown 01/07/2025 Amoxicillin Rash,Unknown 01/07/2025 Medications pantoprazole (PROTONIX) 20 mg EC tabletIndicatio ns:Gastroesopha geal reflux disease without esophagitis TAKE 1 TABLET BY MOUTH TWICE A DAY 180 tablet 4 5 Active Wegovy 2.4 mg/0.75 mL injection pen INJECT 2.4MG SUBCUTANEOUS WEEKLY 30 DAYS Active rosuvastatin (CRESTOR) 5 mg tablet Take 1 tablet (5 mg total) by mouth. at bedtime. 5 Active lisinopriL (PRINIVIL,ZESTR IL) 5 mg tablet 1 tablet (5 mg total) 1 (one) time each day at the same time. Active montelukast (SINGULAIR) 10 mg tablet 1 tablet (10 mg total) 1 (one) time each day at the same time. Active pantoprazole (PROTONIX) 20 mg EC tabletIndicatio ns:Gastroesopha geal reflux disease without esophagitis Take 1 tablet (20 mg total) by mouth 3 (three) times a day. Do not crush, chew, or split. 270 each 3 5 01/07/20 26 Active Active Problems Problem Noted Date Diagnosed Date Asthma 01/07/2025 Hyperlipidemia 01/07/2025 HTN (hypertension) 01/07/2025 GERD (gastroesophageal reflux disease) Assessment & Plan (01/07/2025 8:24 AM EST): Orders: pantoprazole (PROTONIX) 20 mg EC tablet; Take 1 tablet (20 mg total) by mouth 3 (three) times a day. Do not crush, chew, or split. Encounters Date Type Department Care Team Description 01/07/2025 8:00 AM EST Office Visit Gastroenterology - [address] [facility] [address] [place] [id number] Hans Rodriguez PA Gastroesophageal reflux disease without esophagitis (Primary Dx) 12/18/2024 Telephone Gastroenterology - [address] [facility] [address] [facility] [address] [place] [address] Sophia Miller MD from Last 3 Months Surgical History Surgery Date Site/Laterality Comments CYSTOCELE REPAIR rectocele/cystocele repair ESOPHAGOGASTRODUODENOSCOPY 03/18/2023 - 04/17/2023 small HH, nl gastric and sm bowel biopsies COLONOSCOPY 11/18/2020 - 12/18/2020 [facility] - tics, rhoids (10 yr) OTHER SURGICAL HISTORY Right Tib-Fib fracture and repair Social History Tobacco Use Types Packs/Day Years Used Date Smoking Tobacco: Never Assessed Comments Unknown Sex and Gender Information Value Date Recorded Sex Assigned at Not on file Legal Sex Female 8:44 PM EST Gender Identity Not on file Sexual Orientation Not on file Obstetrics History Last Filed Vital Signs Vital Sign Reading Time Taken Comments Blood Pressure - - Pulse - - Temperature - - Respiratory Rate - - Oxygen Saturation - - Inhaled Oxygen Concentration - - Weight 61.7 kg (136 lb) 01/07/2025 8:04 AM EST Height 165.1 cm (5' 5 ) 01/07/2025 8:04 AM EST Body Mass Index 22.63 01/07/2025 8:04 AM EST Plan of Treatment Health Maintenance Due Date Last Done Comments Breast Cancer Screening 1970 DTaP,Tdap,and Td Vaccines (1 - Tdap) 1989 Hepatitis B Vaccines (1 of 3 - 19+ 3-dose series) 1989 Pneumococcal Vaccine: 50+ Years (1 of 2 - PCV) 1989 Pneumococcal Vaccine: Pediatrics (0 to 5 Years) and At-Risk Patients (6 to 64 Years) (1 of 2 - PCV) 1989 Zoster Vaccines (1 of 2) 1989 Cervical Cancer Screening: Pap Smear 1991 Cholesterol Screening (Lipid Panel) 12/13/2023 Colorectal Cancer Screening: Colonoscopy 12/13/2023 Depression Screening 12/13/2023 HIV Screening 12/13/2023 Hepatitis C Screening 12/13/2023 Social Influencers of Health Screening 12/13/2023 COVID-19 Vaccine ( season) 2024 09/24/2023, 08/26/2022, 09/19/2021, Additional history exists Hypertension/CHF/CAD Annual BMP Blood Test 01/07/2025 Influenza Vaccine Completed 08/27/2024, , 08/26/2022, Additional history exists HIB Vaccines Aged Out No longer eligi ble based on patient's age to complete this topic HPV Vaccines Aged Out No longer eligi ble based on patient's age to complete this topic Hepatitis A Vaccines Aged Out No long er eligible based on patient's age to complete this topic IPV Vaccines Aged Out No longer eligi ble based on patient's age to complete this topic MMR Vaccines Aged Out No longer eligi ble based on patient's age to complete this topic Meningococcal ACWY Vaccine Aged Out N o longer eligible based on patient's age to complete this topic Meningococcal B Vacine Aged Out No lo nger eligible based on patient's age to complete this topic RSV Immunization Patients Under 20 months Aged Out No longer eligible based on patient's age to complete this topic Varicella Vaccines Aged Out No longer eligible based on patient's age to complete this topic Insurance [facility] Care Teams Caustic Purification Operator Relationship Specialty Start Date End Date Smitha Bennett MD [address] [place] [address] PCP - General Internal Medicine 12/18/24
--- OUTSIDE RECORDS SUMMARY | 2025-01-24 23:53 | XMS_ITS | Patient Health Record ---
Author Organization [facility] Address [address] [place] [address] Care Team Providers Care Pairer Inspector Name Role Phone CASPER REREWILLIAMS Unavailable KATHY MCCARTHY Unavailable [phone] Nya Louis Unavailable [phone] ALLERGIES Allergen (clinical drug ingredient) Drug/Non Drug Allergy documented on EMR Reaction Allergy Type Onset Date Status Adhesive Unknown Allergy Active amoxicillin Amoxicillin Unknown Drug Allergy Act jose RESULTS Component Value Reference Range Notes Hemoglobin [id number] Reviewed date:03/10/2024 04:07:44 PM Interpretation: Performing Lab:[email or web address], [address] [facility], Phone - [phone], Director - Lauren Notes/Report: Clinical Information:[id number] Hemoglobin A1c 5.4 4.8-5.6 % . Prediabetes: 5.7 - 6.4 Diabetes: >6.4 Glycemic control for adults with diabetes: <7.0 Vitamin D, [id number] Reviewed date:03/23/2024 01:14:34 PM Interpretation: Performing Lab:[facility], [address] [facility], Phone - [phone], Director - Lauren Notes/Report: Clinical Information:[id number] Vitamin D, 25-Hydroxy 26.6 30.0-100.0 ng/mL Vitamin D deficiency has been defined by the [place] [employer] and an Endocrine Society practice guideline as a level of serum 25-OH vitamin D less than 20 ng/mL (1,2). The Endocrine Society went on to further define vitamin D insufficiency as a level between 21 and 29 ng/mL (2). 1. IOM ([place] [employer]). 2010. Dietary reference intakes for calcium and D. [place]: The National Academies Press. 2. Ray MF, Michael NC, Ilir REED, et al. Evaluation, treatment, and prevention of vitamin D deficiency: an Endocrine Society clinical practice guideline. JCEM. 2010; 96(7):1911-30. Hannah Santos CMP14 Default A hand-written panel/profile was received from your office. In accordance with the [facility] Ambiguous Test Code Policy dated May 2003, we have completed your order by using the closest currently or formerly recognized AMA panel. We have assigned Comprehensive Metabolic Panel (14), Test Code #311271 to this request. If this is not the testing you wished to receive on this specimen, please contact the [facility] [employer] Client Inquiry/Technical Services Department to clarify the test order. We appreciate your business. Lipid Panel-[id number] Reviewed date:03/18/2024 10:20:27 AM Interpretation: Performing Lab:[facility], [address] [facility], Phone - [phone], Director - Lauren Notes/Report: Clinical Information:[id number] Cholesterol, Total 182 100-199 mg/dL Triglycerides 178 0-149 mg/dL HDL Cholesterol 53 >39 mg/dL VLDL Cholesterol Enoch 31 5-40 mg/dL LDL Chol Calc ([facility]) 98 0-99 mg/dL Comment: Comp. Metabolic Panel (14)-3 [id number] Reviewed date:03/10/2024 04:08:44 PM Interpretation: Performing Lab:[facility], [address] [facility], [place], Phone - [phone], Director - Lauren Notes/Report: Clinical Information:[id number] Glucose 84 70-99 mg/dL BUN 7 6-24 mg/dL Creatinine 0.85 0.57-1.00 mg/dL eGFR 82 >59 mL/min/1.73 BUN/Creatinine Ratio 8 9-23 Sodium 142 134-144 mmol/L Potassium 4.3 3.5-5.2 mmol/L Chloride 104 96-106 mmol/L Carbon Dioxide, Total 23 20-29 mmol/L Calcium 9.5 8.7-10.2 mg/dL Protein, Total 6.8 6.0-8.5 g/dL Albumin 4.3 3.8-4.9 g/dL Globulin, Total 2.5 1.5-4.5 g/dL A/G Ratio 1.7 1.2-2.2 Bilirubin, Total 0.5 0.0-1.2 mg/dL Alkaline Phosphatase 77 44-121 IU/L AST (SGOT) 17 0-40 IU/L ALT (SGPT) 14 0-32 IU/L CBC/Diff Ambiguous Default Reviewed date:03/10/2024 04:08:14 PM Interpretation: Performing Lab:[facility], [address] [facility], [place], Phone - [phone], Director - Lauren Notes/Report: Clinical Information:[id number] WBC 5.4 3.4-10.8 x10E3/uL RBC 3.97 3.77-5.28 x10E6/uL Hemoglobin 12.3 11.1-15.9 g/dL Hematocrit 36.4 34.0-46.6 % MCV 92 79-97 fL MCH 31.0 26.6-33.0 pg MCHC 33.8 31.5-35.7 g/dL RDW 12.7 11.7-15.4 % Platelets 290 150-450 x10E3/uL Neutrophils 59 Not Estab. % Lymphs 27 Not Estab. % Monocytes 9 Not Estab. % Eos 4 Not Estab. % Basos 1 Not Estab. % Immature Cells Neutrophils (Absolute) 3.2 1.4-7.0 x10E3/uL Lymphs (Absolute) 1.5 0.7-3.1 x10E3/uL Monocytes(Absolute) 0.5 0.1-0.9 x10E3/uL Eos (Absolute) 0.2 0.0-0.4 x10E3/uL Baso (Absolute) 0.0 0.0-0.2 x10E3/uL Immature Granulocytes 0 Not Estab. % Immature Grans (Abs) 0.0 0.0-0.1 x10E3/uL NRBC Hematology Comments: A hand-written panel/profile was received from your office. In accordance with the [facility] Ambiguous Test Code Policy dated May 2003, we have assigned CBC with Differential/Platelet, Test Code #[id number] to this request. If this is not the testing you wished to receive on this specimen, please contact the [facility] Client Inquiry/ Technical Services Department to clarify the test order. We appreciate your business. Hannah Casonrev BORDEN Default Reviewed date:03/10/2024 01:09:08 PM Interpretation: Performing Lab:[facility], [address], [place], Phone - [phone], Director - Lauren Notes/Report: Clinical Information:[id number] Hannah Santos LP Default A hand-written panel/profile was received from your office. In accordance with the [facility] Code Policy dated May 2003, we have completed your order by using the closest currently or formerly recognized AMA panel. We have assigned Lipid Panel, Test Code #[id number] to this request. If this is not the testing you wished to receive on this specimen, please [facility] the [facility] Department to clarify the test order. We appreciate your business. REASON FOR REFERRAL No Information MEDICATIONS Medication SIG (Take, Route, Frequency, Duration) [...] Subcutaneou s weekly for 30 days Active Rosuvastatin Calcium 10 MG 1 tablet Orally Once a day Active Lisinopril 5 MG 1 tablet Orally Once a day Active Cetirizine HCl 10 MG 1 tablet Orally Once a day Active Pantoprazole Sodium 20 MG 1 tablet Orally Once a day Active PROBLEMS Problem Type ICD Code Onset Dates Problem Status W/U Status Risk SNOMED Code Notes Problem Overweight (E66.3) Active confirmed 781130370 Problem Hyperlipidemia, unspecified (E78.5) Active confirmed Hyperlipidemia (37209610) Problem Vitamin D deficiency (E55.9) Active confirmed 18321826 Problem Hypertension, unspecified type (I10) Active confirmed Essential hypertension (26014643) Problem BMI 29.0-29.9,adult (Z68.29) Active confirmed BMI 25-29 - overweight (016197189) Problem BMI 25.0-25.9,adult (Z68.25) Active confirmed [id number] Problem Obesity due to excess calories without serious comorbidity, unspecified classification (E66.09) Active confirmed Obesity (479821602) VITAL SIGNS Heart Rate 81 /min 12/02/2024 Blood pressure diastolic 84 mm Hg 12/02/2024 Oximetry 99 % 12/02/2024 Height 62 in 12/02/2024 Blood pressure systolic 122 mm Hg 12/02/2024 Weight 135 lbs 12/02/2024 BMI 24.69 kg/m2 12/02/2024 Encounters Encounter Location Date Provider Diagnosis [address] [address] 05/12/2024 Nya Svrcek Overweight E66.3 ; B NV 25.0-25.9,adult Z68.25 ; Hypertension, unspecified type I10 ; Hyperlipidemia, unspecified E78.5 ; Vitamin D deficiency E55.9 and Weight loss counseling, encounter for Z71.3 [address] [address] 10/20/2024 Nya Svrcek Overweight E66.3 ; Hypertension, unspecified type I10 ; Hyperlipidemia, unspecified E78.5 ; Vitamin D deficiency E55.9 and Weight loss counseling, encounter for Z71.3 [address] [address] 02/04/2024 Nya Svrcek BMI 25.0-25.9,adult Z68.25 ; Overweight E66.3 ; Hypertension, unspecified type I10 and Hyperlipidemia, unspecified E78.5 [facility] [address] [place] [address] 03/30/2024 Nya Svrcek Overweight E66.3 ; B NV 25.0-25.9,adult Z68.25 ; Hypertension, unspecified type I10 ; Hyperlipidemia, unspecified E78.5 ; Vitamin D deficiency E55.9 and Weight loss counseling, encounter for Z71.3 [address] [address] 05/12/2024 Nya Svrcek Overweight E66.3 ; Hypertension, unspecified type I10 ; Hyperlipidemia, unspecified E78.5 ; Vitamin D deficiency E55.9 and Weight loss counseling, encounter for Z71.3 [address] [address] 06/23/2024 Nya Svrcek Overweight E66.3 ; Hypertension, unspecified type I10 ; Hyperlipidemia, unspecified E78.5 ; Vitamin D deficiency E55.9 and Weight loss counseling, encounter for Z71.3 [address] [address] 08/25/2024 Nya Svrcek Overweight E66.3 ; Hypertension, unspecified type I10 ; Hyperlipidemia, unspecified E78.5 ; Vitamin D deficiency E55.9 and Weight loss counseling, encounter for Z71.3 [address] [address] 10/20/2024 Nya Svrcek Overweight E66.3 ; Hypertension, unspecified type I10 ; Hyperlipidemia, unspecified E78.5 ; Vitamin D deficiency E55.9 and Weight loss counseling, encounter for Z71.3 [address] [address] 12/02/2024 Nya Svrcek Overweight E66.3 ; Hypertension, unspecified type I10 ; Hyperlipidemia, unspecified E78.5 ; Vitamin D deficiency E55.9 and Weight loss counseling, encounter for Z71.3 [facility] [address] [place] [address] 10/23/2024 KATHY MCCARTHY Overweight E66.3 [facility] [address] [place] [address] 11/03/2024 Nya Svrcek [address] [address] 05/08/2024 Nya Svrcek [address] [address] 05/08/2024 Nya Svrcek ASSESSMENTS Encounter Date Diagnosis Assessment Notes Treatment Notes Treatment Clinical Notes Section Notes 02/04/2024 Overweight (ICD-10 - E66.3) #Overweight: 140lbs, BMI 25.6 Doing well on Wegovy 2.4 without side effects. Reviewed importance of protein intake, hydration, regular exercise/weight training. Will get updated labs prior to next visit. Unfortunately, SECA scale is not available today. Will recheck at follow up in 6 weeks. #Hypertension: Currently well controlled on current regimen. Follow with PCP. #Hyperlipidemia: Recheck labs. Follow with PCP. The patient will continue exercise regimen with [...] Dictation was accomplished with the use of [employer] voice recognition software, prone to medical misidentifications and grammatical errors. This is unintentional and the practitioner does try to identify and correct these, but some could still be present. Please do not hesitate to contact practitioner for clarification. All questions answered to patients satisfaction. Patient verbalized understanding of diagnosis and treatments explained. To call sooner prior to next visit it any questions/concerns arise. 02/04/2024 BMI 25.0-25.9,adul t (ICD-10 - Z68.25) #Overweight: 140lbs, BMI 25.6 Doing well on Wegovy 2.4 without side effects. Reviewed importance of protein intake, hydration, regular exercise/weight training. Will get updated labs prior to next visit. Unfortunately, SECA scale is not available today. Will recheck at follow up in 6 weeks. #Hypertension: Currently well controlled on current regimen. Follow with PCP. #Hyperlipidemia: Recheck labs. Follow with PCP. The patient will continue exercise regimen with [...] Dictation was accomplished with the use of [employer] voice recognition software, prone to medical misidentifications and grammatical errors. This is unintentional and the practitioner does try to identify and correct these, but some could still be present. Please do not hesitate to contact practitioner for clarification. All questions answered to patients satisfaction. Patient verbalized understanding of diagnosis and treatments explained. To call sooner prior to next visit it any questions/concerns arise. 03/30/2024 Overweight (ICD-10 - E66.3) #Overweight: 139.9 lbs, BMI 25.4 Doing well on Wegovy 2.4 without side effects. Weight is plateauing a bit. Discussed increasing weight training, increase protein intake to 70-80 g/day. Will also give ALE today. Reviewed updated SECA. Reviewed importance of protein intake, hydration, regular exercise/weight training. Follow up in 6 weeks, sooner with any concern. #Hypertension: Currently well controlled on current regimen. Follow with PCP. #Hyperlipidemia: Labs reviewed. TG elevated. Discussed lifestyle modifications. Follow with PCP. #Vitamin D deficiency- Low at 26 on recent labs. Discussed supplementation. The patient will continue exercise regimen [...] Dictation was accomplished with the use of [employer] voice recognition software, prone to medical misidentifications and grammatical errors. This is unintentional and the practitioner does try to identify and correct these, but some could still be present. Please do not hesitate to contact practitioner for clarification. All questions answered to patients satisfaction. Patient verbalized understanding of diagnosis and treatments explained. To call sooner prior to next visit it any questions/concerns arise. 03/30/2024 BMI 25.0-25.9,adul t (ICD-10 - Z68.25) #Overweight: 139.9 lbs, BMI 25.4 Doing well on Wegovy 2.4 without side effects. Weight is plateauing a bit. Discussed increasing weight training, increase protein intake to 70-80 g/day. Will also give ALE today. Reviewed updated SECA. Reviewed importance of protein intake, hydration, regular exercise/weight training. Follow up in 6 weeks, sooner with any concern. #Hypertension: Currently well controlled on current regimen. Follow with PCP. #Hyperlipidemia: Labs reviewed. TG elevated. Discussed lifestyle modifications. Follow with PCP. #Vitamin D deficiency- Low at 26 on recent labs. Discussed supplementation. The patient will continue exercise regimen [...] Dictation was accomplished with the use of [employer] voice recognition software, prone to medical misidentifications and grammatical errors. This is unintentional and the practitioner does try to identify and correct these, but some could still be present. Please do not hesitate to contact practitioner for clarification. All questions answered to patients satisfaction. Patient verbalized understanding of diagnosis and treatments explained. To call sooner prior to next visit it any questions/concerns arise. 05/12/2024 Overweight (ICD-10 - E66.3) #Overweight: 139.9 lbs, BMI 25.4 Doing well on Wegovy 2.4 without side effects. Weight is plateauing a bit. Discussed increasing weight training, increase protein intake to 70-80 g/day. Will also give ALE today. Reviewed updated SECA. Reviewed importance of protein intake, hydration, regular exercise/weight training. Follow up in 6 weeks, sooner with any concern. #Hypertension: Currently well controlled on current regimen. Follow with PCP. #Hyperlipidemia: Labs reviewed. TG elevated. Discussed lifestyle modifications. Follow with PCP. #Vitamin D deficiency- Low at 26 on recent labs. Discussed supplementation. The patient will continue exercise regimen [...] Dictation was accomplished with the use of [employer] voice recognition software, prone to medical misidentifications and grammatical errors. This is unintentional and the practitioner does try to identify and correct these, but some could still be present. Please do not hesitate to contact practitioner for clarification. All questions answered to patients satisfaction. Patient verbalized understanding of diagnosis and treatments explained. To call sooner prior to next visit it any questions/concerns arise. 05/12/2024 BMI 25.0-25.9,adul t (ICD-10 - Z68.25) #Overweight: 139.9 lbs, BMI 25.4 Doing well on Wegovy 2.4 without side effects. Weight is plateauing a bit. Discussed increasing weight training, increase protein intake to 70-80 g/day. Will also give ALE today. Reviewed updated SECA. Reviewed importance of protein intake, hydration, regular exercise/weight training. Follow up in 6 weeks, sooner with any concern. #Hypertension: Currently well controlled on current regimen. Follow with PCP. #Hyperlipidemia: Labs reviewed. TG elevated. Discussed lifestyle modifications. Follow with PCP. #Vitamin D deficiency- Low at 26 on recent labs. Discussed supplementation. The patient will continue exercise regimen [...] Dictation was accomplished with the use of [employer] voice recognition software, prone to medical misidentifications and grammatical errors. This is unintentional and the practitioner does try to identify and correct these, but some could still be present. Please do not hesitate to contact practitioner for clarification. All questions answered to patients satisfaction. Patient verbalized understanding of diagnosis and treatments explained. To call sooner prior to next visit it any questions/concerns arise. 05/12/2024 Overweight (ICD-10 - E66.3) #Overweight: 134.2 lbs, BMI 24.3. She has done fantastic on Wegovy 2.4 mg. She is down an additional 5 pounds. She is very close to her goal weight. Discussed maintenance strategies. Continue with protein intake with a goal of 70 to 80 g a day. Encouraged to incorporate resistance training into her regimen as well. Follow-up in 6 weeks sooner with any concerns. #Hypertension: Currently well controlled on current regimen. Follow with PCP. #Hyperlipidemia: Follow with PCP. #Vitamin D deficiency- On supplementation. The patient [...] Dictation was accomplished with the use of [employer] voice recognition software, prone to medical misidentifications and grammatical errors. This is unintentional and the practitioner does try to identify and correct these, but some could still be present. Please do not hesitate to contact practitioner for clarification. All questions answered to patients satisfaction. Patient verbalized understanding of diagnosis and treatments explained. To call sooner prior to next visit it any questions/concerns arise. 05/12/2024 Hypertension, unspecified type (ICD-10 - I10) #Overweight: 134.2 lbs, BMI 24.3. She has done fantastic on Wegovy 2.4 mg. She is down an additional 5 pounds. She is very close to her goal weight. Discussed maintenance strategies. Continue with protein intake with a goal of 70 to 80 g a day. Encouraged to incorporate resistance training into her regimen as well. Follow-up in 6 weeks sooner with any concerns. #Hypertension: Currently well controlled on current regimen. Follow with PCP. #Hyperlipidemia: Follow with PCP. #Vitamin D deficiency- On supplementation. The patient [...] Dictation was accomplished with the use of [employer] voice recognition software, prone to medical misidentifications and grammatical errors. This is unintentional and the practitioner does try to identify and correct these, but some could still be present. Please do not hesitate to contact practitioner for clarification. All questions answered to patients satisfaction. Patient verbalized understanding of diagnosis and treatments explained. To call sooner prior to next visit it any questions/concerns arise. 06/23/2024 Overweight (ICD-10 - E66.3) #Overweight: 134.9lbs, BMI 24.5 She has done fantastic on Wegovy 2.4 mg. Weight is stable. She is very close to her goal weight. Discussed maintenance strategies. Continue with protein intake with a goal of 70 to 80 g a day. Continue regular exercise. Follow up 6-8 weeks, sooner as needed. #Hypertension: Currently well controlled on current regimen. Follow with PCP. BP has been on the lower side, asymptomatic. Will discuss decreasing meds with PCP. #Hyperlipidemia: Follow with PCP. Has been much improved. #Vitamin D deficiency- On supplementation. The patient [...] Dictation was accomplished with the use of [employer] voice recognition software, prone to medical misidentifications and grammatical errors. This is unintentional and the practitioner does try to identify and correct these, but some could still be present. Please do not hesitate to contact practitioner for clarification. All questions answered to patients satisfaction. Patient verbalized understanding of diagnosis and treatments explained. To call sooner prior to next visit it any questions/concerns arise. 06/23/2024 Hypertension, unspecified type (ICD-10 - I10) #Overweight: 134.9lbs, BMI 24.5 She has done fantastic on Wegovy 2.4 mg. Weight is stable. She is very close to her goal weight. Discussed maintenance strategies. Continue with protein intake with a goal of 70 to 80 g a day. Continue regular exercise. Follow up 6-8 weeks, sooner as needed. #Hypertension: Currently well controlled on current regimen. Follow with PCP. BP has been on the lower side, asymptomatic. Will discuss decreasing meds with PCP. #Hyperlipidemia: Follow with PCP. Has been much improved. #Vitamin D deficiency- On supplementation. The patient [...] Dictation was accomplished with the use of [employer] voice recognition software, prone to medical misidentifications and grammatical errors. This is unintentional and the practitioner does try to identify and correct these, but some could still be present. Please do not hesitate to contact practitioner for clarification. All questions answered to patients satisfaction. Patient verbalized understanding of diagnosis and treatments explained. To call sooner prior to next visit it any questions/concerns arise. 08/25/2024 Overweight (ICD-10 - E66.3) #Overweight: 134.6 lbs, BMI 24.4 She has done fantastic on Wegovy 2.4 mg. Weight is stable. She is very close to her goal weight. Discussed maintenance strategies. Continue with protein intake with a goal [...] Dictation was accomplished with the use of [employer] voice recognition software, prone to medical misidentifications and grammatical errors. This is unintentional and the practitioner does try to identify and correct these, but some could still be present. Please do not hesitate to contact practitioner for clarification. All questions answered to patients satisfaction. Patient verbalized understanding of diagnosis and treatments explained. To call sooner prior to next visit it any questions/concerns arise. 08/25/2024 Hypertension, unspecified type (ICD-10 - I10) #Overweight: 134.6 lbs, BMI 24.4 She has done fantastic on Wegovy 2.4 mg. Weight is stable. She is very close to her goal weight. Discussed maintenance strategies. Continue with protein intake with a goal [...] Dictation was accomplished with the use of [employer] voice recognition software, prone to medical misidentifications and grammatical errors. This is unintentional and the practitioner does try to identify and correct these, but some could still be present. Please do not hesitate to contact practitioner for clarification. All questions answered to patients satisfaction. Patient verbalized understanding of diagnosis and treatments explained. To call sooner prior to next visit it any questions/concerns arise. 10/20/2024 Overweight (ICD-10 - E66.3) #Overweight: 134.5 lbs, BMI 24.4 She has done fantastic on Wegovy 2.4 mg. Weight is stable. In maintenance strategies. Continue with protein intake with a goal of 70 to 80 g a day. Continue regular exercise. Follow up 6 weeks, sooner as needed. #Hypertension: Currently well controlled on current regimen. Follow with PCP. May be interested in changing her PCP to us as well. #Hyperlipidemia: Follow with PCP. Has been much [...] 4-6 weeks time to monitor weight loss. 30 minutues spent with patient, >50% in coordination of care. Case discussed with collaborating physician Tanner Mccarthy who reviewed the assessment and plan. Chart, medications, labs, vital signs reviewed. Dictation was accomplished with the use of [employer] voice recognition software, prone to medical misidentifications and grammatical errors. This is unintentional and the practitioner does try to identify and correct these, but some could still be present. Please do not hesitate to contact practitioner for clarification. All questions answered to patients satisfaction. Patient verbalized understanding of diagnosis and treatments explained. To call sooner prior to next visit it any questions/concerns arise. 10/20/2024 Hypertension, unspecified type (ICD-10 - I10) #Overweight: 134.5 lbs, BMI 24.4 She has done fantastic on Wegovy 2.4 mg. Weight is stable. In maintenance strategies. Continue with protein intake with a goal of 70 to 80 g a day. Continue regular exercise. Follow up 6 weeks, sooner as needed. #Hypertension: Currently well controlled on current regimen. Follow with PCP. May be interested in changing her PCP to us as well. #Hyperlipidemia: Follow with PCP. Has been much [...] 4-6 weeks time to monitor weight loss. 30 minutues spent with patient, >50% in coordination of care. Case discussed with collaborating physician Tanner Mccarthy who reviewed the assessment and plan. Chart, medications, labs, vital signs reviewed. Dictation was accomplished with the use of [employer] voice recognition software, prone to medical misidentifications and grammatical errors. This is unintentional and the practitioner does try to identify and correct these, but some could still be present. Please do not hesitate to contact practitioner for clarification. All questions answered to patients satisfaction. Patient verbalized understanding of diagnosis and treatments explained. To call sooner prior to next visit it any questions/concerns arise. 10/20/2024 Overweight (ICD-10 - E66.3) #Overweight: 134.6 lbs, BMI 24.4 She has done fantastic on Wegovy 2.4 mg. Weight is stable. She is very close to her goal weight. Discussed maintenance strategies. Continue with protein intake with a goal [...] Dictation was accomplished with the use of [employer] voice recognition software, prone to medical misidentifications and grammatical errors. This is unintentional and the practitioner does try to identify and correct these, but some could still be present. Please do not hesitate to contact practitioner for clarification. All questions answered to patients satisfaction. Patient verbalized understanding of diagnosis and treatments explained. To call sooner prior to next visit it any questions/concerns arise. 10/20/2024 Hypertension, unspecified type (ICD-10 - I10) #Overweight: 134.6 lbs, BMI 24.4 She has done fantastic on Wegovy 2.4 mg. Weight is stable. She is very close to her goal weight. Discussed maintenance strategies. Continue with protein intake with a goal [...] Dictation was accomplished with the use of [employer] voice recognition software, prone to medical misidentifications and grammatical errors. This is unintentional and the practitioner does try to identify and correct these, but some could still be present. Please do not hesitate to contact practitioner for clarification. All questions answered to patients satisfaction. Patient verbalized understanding of diagnosis and treatments explained. To call sooner prior to next visit it any questions/concerns arise. 10/23/2024 Overweight (ICD-10 - E66.3) 12/02/2024 Overweight (ICD-10 - E66.3) #Overweight: 135.5 [...] Dictation was accomplished with the use of [employer] voice recognition software, prone to medical misidentifications [...] Dictation was accomplished with the use of [employer] voice recognition software, prone to medical misidentifications and grammatical errors. This is unintentional and the practitioner does try to identify and correct these, but some could still be present. Please do not hesitate to contact practitioner for clarification. All questions answered to patients satisfaction. Patient verbalized understanding of diagnosis and treatments explained. To call sooner prior to next visit it any questions/concerns arise. 05/12/2024 Hypertension, unspecified type (ICD-10 - I10) #Overweight: 139.9 lbs, BMI 25.4 Doing well on Wegovy 2.4 without side effects. Weight is plateauing a bit. Discussed increasing weight training, increase protein intake to 70-80 g/day. Will also give ALE today. Reviewed updated SECA. Reviewed importance of protein intake, hydration, regular exercise/weight training. Follow up in 6 weeks, sooner with any concern. #Hypertension: Currently well controlled on current regimen. Follow with PCP. #Hyperlipidemia: Labs reviewed. TG elevated. Discussed lifestyle modifications. Follow with PCP. #Vitamin D deficiency- Low at 26 on recent labs. Discussed supplementation. The patient will continue exercise regimen [...] Dictation was accomplished with the use of [employer] voice recognition software, prone to medical misidentifications [...] Dictation was accomplished with the use of [employer] voice recognition software, prone to medical misidentifications and grammatical errors. This is unintentional and the practitioner does try to identify and correct these, but some could still be present. Please do not hesitate to contact practitioner for clarification. All questions answered to patients satisfaction. Patient verbalized understanding of diagnosis and treatments explained. To call sooner prior to next visit it any questions/concerns arise. 10/20/2024 Hyperlipidemia , unspecified (ICD-10 - E78.5) #Overweight: 134.6 lbs, BMI 24.4 She has done fantastic on Wegovy 2.4 mg. Weight is stable. She is very close to her goal weight. Discussed maintenance strategies. Continue with protein intake with a goal [...] weight loss. Case discussed with collaborating physician aTnner Mccarthy who reviewed the assessment and plan. Chart, medications, labs, vital signs reviewed. Dictation was accomplished with the use of [employer] voice recognition software, prone to medical misidentifications and grammatical errors. This is unintentional and the practitioner does try to identify and correct these, but some could still be present. Please do not hesitate to contact practitioner for clarification. All questions answered to patients satisfaction. Patient verbalized understanding of diagnosis and treatments explained. To call sooner prior to next visit it any questions/concerns arise. 10/20/2024 Hyperlipidemia , unspecified (ICD-10 - E78.5) #Overweight: 134.5 lbs, BMI 24.4 She has done fantastic on Wegovy 2.4 mg. Weight is stable. In maintenance strategies. Continue with protein intake with a goal of 70 to 80 g a day. Continue regular exercise. Follow up 6 weeks, sooner as needed. #Hypertension: Currently well controlled on current regimen. Follow with PCP. May be interested in changing her PCP to us as well. #Hyperlipidemia: Follow with PCP. Has been much [...] 4-6 weeks time to monitor weight loss. 30 minutues spent with patient, >50% in coordination of care. Case discussed with collaborating physician Tanner Mccarthy who reviewed the assessment and plan. Chart, medications, labs, vital signs reviewed. Dictation was accomplished with the use of [employer] voice recognition software, prone to medical misidentifications and grammatical errors. This is unintentional and the practitioner does try to identify and correct these, but some could still be present. Please do not hesitate to contact practitioner for clarification. All questions answered to patients satisfaction. Patient verbalized understanding of diagnosis and treatments explained. To call sooner prior to next visit it any questions/concerns arise. 08/25/2024 Hyperlipidemia , unspecified (ICD-10 - E78.5) #Overweight: 134.6 lbs, BMI 24.4 She has done fantastic on Wegovy 2.4 mg. Weight is stable. She is very close to her goal weight. Discussed maintenance strategies. Continue with protein intake with a goal [...] Dictation was accomplished with the use of [employer] voice recognition software, prone to medical misidentifications and grammatical errors. This is unintentional and the practitioner does try to identify and correct these, but some could still be present. Please do not hesitate to contact practitioner for clarification. All questions answered to patients satisfaction. Patient verbalized understanding of diagnosis and treatments explained. To call sooner prior to next visit it any questions/concerns arise. 06/23/2024 Hyperlipidemia , unspecified (ICD-10 - E78.5) #Overweight: 134.9lbs, BMI 24.5 She has done fantastic on Wegovy 2.4 mg. Weight is stable. She is very close to her goal weight. Discussed maintenance strategies. Continue with protein intake with a goal of 70 to 80 g a day. Continue regular exercise. Follow up 6-8 weeks, sooner as needed. #Hypertension: Currently well controlled on current regimen. Follow with PCP. BP has been on the lower side, asymptomatic. Will discuss decreasing meds with PCP. #Hyperlipidemia: Follow with PCP. Has been much improved. #Vitamin D deficiency- On supplementation. The patient [...] Dictation was accomplished with the use of [employer] voice recognition software, prone to medical misidentifications and grammatical errors. This is unintentional and the practitioner does try to identify and correct these, but some could still be present. Please do not hesitate to contact practitioner for clarification. All questions answered to patients satisfaction. Patient verbalized understanding of diagnosis and treatments explained. To call sooner prior to next visit it any questions/concerns arise. 05/12/2024 Hyperlipidemia , unspecified (ICD-10 - E78.5) #Overweight: 134.2 lbs, BMI 24.3. She has done fantastic on Wegovy 2.4 mg. She is down an additional 5 pounds. She is very close to her goal weight. Discussed maintenance strategies. Continue with protein intake with a goal of 70 to 80 g a day. Encouraged to incorporate resistance training into her regimen as well. Follow-up in 6 weeks sooner with any concerns. #Hypertension: Currently well controlled on current regimen. Follow with PCP. #Hyperlipidemia: Follow with PCP. #Vitamin D deficiency- On supplementation. The patient [...] Dictation was accomplished with the use of [employer] voice recognition software, prone to medical misidentifications and grammatical errors. This is unintentional and the practitioner does try to identify and correct these, but some could still be present. Please do not hesitate to contact practitioner for clarification. All questions answered to patients satisfaction. Patient verbalized understanding of diagnosis and treatments explained. To call sooner prior to next visit it any questions/concerns arise. 02/04/2024 Hypertension, unspecified type (ICD-10 - I10) #Overweight: 140lbs, BMI 25.6 Doing well on Wegovy 2.4 without side effects. Reviewed importance of protein intake, hydration, regular exercise/weight training. Will get updated labs prior to next visit. Unfortunately, SECA scale is not available today. Will recheck at follow up in 6 weeks. #Hypertension: Currently well controlled on current regimen. Follow with PCP. #Hyperlipidemia: Recheck labs. Follow with PCP. The patient will continue exercise regimen with [...] Dictation was accomplished with the use of [employer] voice recognition software, prone to medical misidentifications and grammatical errors. This is unintentional and the practitioner does try to identify and correct these, but some could still be present. Please do not hesitate to contact practitioner for clarification. All questions answered to patients satisfaction. Patient verbalized understanding of diagnosis and treatments explained. To call sooner prior to next visit it any questions/concerns arise. 03/30/2024 Hypertension, unspecified type (ICD-10 - I10) #Overweight: 139.9 lbs, BMI 25.4 Doing well on Wegovy 2.4 without side effects. Weight is plateauing a bit. Discussed increasing weight training, increase protein intake to 70-80 g/day. Will also give ALE today. Reviewed updated SECA. Reviewed importance of protein intake, hydration, regular exercise/weight training. Follow up in 6 weeks, sooner with any concern. #Hypertension: Currently well controlled on current regimen. Follow with PCP. #Hyperlipidemia: Labs reviewed. TG elevated. Discussed lifestyle modifications. Follow with PCP. #Vitamin D deficiency- Low at 26 on recent labs. Discussed supplementation. The patient will continue exercise regimen [...] Dictation was accomplished with the use of [employer] voice recognition software, prone to medical misidentifications and grammatical errors. This is unintentional and the practitioner does try to identify and correct these, but some could still be present. Please do not hesitate to contact practitioner for clarification. All questions answered to patients satisfaction. Patient verbalized understanding of diagnosis and treatments explained. To call sooner prior to next visit it any questions/concerns arise. 02/04/2024 Hyperlipidemia , unspecified (ICD-10 - E78.5) #Overweight: 140lbs, BMI 25.6 Doing well on Wegovy 2.4 without side effects. Reviewed importance of protein intake, hydration, regular exercise/weight training. Will get updated labs prior to next visit. Unfortunately, SECA scale is not available today. Will recheck at follow up in 6 weeks. #Hypertension: Currently well controlled on current regimen. Follow with PCP. #Hyperlipidemia: Recheck labs. Follow with PCP. The patient will continue exercise regimen with [...] Dictation was accomplished with the use of [employer] voice recognition software, prone to medical misidentifications and grammatical errors. This is unintentional and the practitioner does try to identify and correct these, but some could still be present. Please do not hesitate to contact practitioner for clarification. All questions answered to patients satisfaction. Patient verbalized understanding of diagnosis and treatments explained. To call sooner prior to next visit it any questions/concerns arise. 03/30/2024 Hyperlipidemia , unspecified (ICD-10 - E78.5) #Overweight: 139.9 lbs, BMI 25.4 Doing well on Wegovy 2.4 without side effects. Weight is plateauing a bit. Discussed increasing weight training, increase protein intake to 70-80 g/day. Will also give ALE today. Reviewed updated SECA. Reviewed importance of protein intake, hydration, regular exercise/weight training. Follow up in 6 weeks, sooner with any concern. #Hypertension: Currently well controlled on current regimen. Follow with PCP. #Hyperlipidemia: Labs reviewed. TG elevated. Discussed lifestyle modifications. Follow with PCP. #Vitamin D deficiency- Low at 26 on recent labs. Discussed supplementation. The patient will continue exercise regimen [...] Dictation was accomplished with the use of [employer] voice recognition software, prone to medical misidentifications and grammatical errors. This is unintentional and the practitioner does try to identify and correct these, but some could still be present. Please do not hesitate to contact practitioner for clarification. All questions answered to patients satisfaction. Patient verbalized understanding of diagnosis and treatments explained. To call sooner prior to next visit it any questions/concerns arise. 05/12/2024 Hyperlipidemia , unspecified (ICD-10 - E78.5) #Overweight: 139.9 lbs, BMI 25.4 Doing well on Wegovy 2.4 without side effects. Weight is plateauing a bit. Discussed increasing weight training, increase protein intake to 70-80 g/day. Will also give ALE today. Reviewed updated SECA. Reviewed importance of protein intake, hydration, regular exercise/weight training. Follow up in 6 weeks, sooner with any concern. #Hypertension: Currently well controlled on current regimen. Follow with PCP. #Hyperlipidemia: Labs reviewed. TG elevated. Discussed lifestyle modifications. Follow with PCP. #Vitamin D deficiency- Low at 26 on recent labs. Discussed supplementation. The patient will continue exercise regimen [...] Dictation was accomplished with the use of [employer] voice recognition software, prone to medical misidentifications and grammatical errors. This is unintentional and the practitioner does try to identify and correct these, but some could still be present. Please do not hesitate to contact practitioner for clarification. All questions answered to patients satisfaction. Patient verbalized understanding of diagnosis and treatments explained. To call sooner prior to next visit it any questions/concerns arise. 05/12/2024 Vitamin D deficiency (ICD-10 - E55.9) #Overweight: 134.2 lbs, BMI 24.3. She has done fantastic on Wegovy 2.4 mg. She is down an additional 5 pounds. She is very close to her goal weight. Discussed maintenance strategies. Continue with protein intake with a goal of 70 to 80 g a day. Encouraged to incorporate resistance training into her regimen as well. Follow-up in 6 weeks sooner with any concerns. #Hypertension: Currently well controlled on current regimen. Follow with PCP. #Hyperlipidemia: Follow with PCP. #Vitamin D deficiency- On supplementation. The patient [...] Dictation was accomplished with the use of [employer] voice recognition software, prone to medical misidentifications and grammatical errors. This is unintentional and the practitioner does try to identify and correct these, but some could still be present. Please do not hesitate to contact practitioner for clarification. All questions answered to patients satisfaction. Patient verbalized understanding of diagnosis and treatments explained. To call sooner prior to next visit it any questions/concerns arise. 06/23/2024 Vitamin D deficiency (ICD-10 - E55.9) #Overweight: 134.9lbs, BMI 24.5 She has done fantastic on Wegovy 2.4 mg. Weight is stable. She is very close to her goal weight. Discussed maintenance strategies. Continue with protein intake with a goal of 70 to 80 g a day. Continue regular exercise. Follow up 6-8 weeks, sooner as needed. #Hypertension: Currently well controlled on current regimen. Follow with PCP. BP has been on the lower side, asymptomatic. Will discuss decreasing meds with PCP. #Hyperlipidemia: Follow with PCP. Has been much improved. #Vitamin D deficiency- On supplementation. The patient [...] Dictation was accomplished with the use of [employer] voice recognition software, prone to medical misidentifications and grammatical errors. This is unintentional and the practitioner does try to identify and correct these, but some could still be present. Please do not hesitate to contact practitioner for clarification. All questions answered to patients satisfaction. Patient verbalized understanding of diagnosis and treatments explained. To call sooner prior to next visit it any questions/concerns arise. 08/25/2024 Vitamin D deficiency (ICD-10 - E55.9) #Overweight: 134.6 lbs, BMI 24.4 She has done fantastic on Wegovy 2.4 mg. Weight is stable. She is very close to her goal weight. Discussed maintenance strategies. Continue with protein intake with a goal [...] Dictation was accomplished with the use of [employer] voice recognition software, prone to medical misidentifications and grammatical errors. This is unintentional and the practitioner does try to identify and correct these, but some could still be present. Please do not hesitate to contact practitioner for clarification. All questions answered to patients satisfaction. Patient verbalized understanding of diagnosis and treatments explained. To call sooner prior to next visit it any questions/concerns arise. 10/20/2024 Vitamin D deficiency (ICD-10 - E55.9) #Overweight: 134.5 lbs, BMI 24.4 She has done fantastic on Wegovy 2.4 mg. Weight is stable. In maintenance strategies. Continue with protein intake with a goal of 70 to 80 g a day. Continue regular exercise. Follow up 6 weeks, sooner as needed. #Hypertension: Currently well controlled on current regimen. Follow with PCP. May be interested in changing her PCP to us as well. #Hyperlipidemia: Follow with PCP. Has been much [...] 4-6 weeks time to monitor weight loss. 30 minutues spent with patient, >50% in coordination of care. Case discussed with collaborating physician Tanner Mccarthy who reviewed the assessment and plan. Chart, medications, labs, vital signs reviewed. Dictation was accomplished with the use of [employer] voice recognition software, prone to medical misidentifications and grammatical errors. This is unintentional and the practitioner does try to identify and correct these, but some could still be present. Please do not hesitate to contact practitioner for clarification. All questions answered to patients satisfaction. Patient verbalized understanding of diagnosis and treatments explained. To call sooner prior to next visit it any questions/concerns arise. 10/20/2024 Vitamin D deficiency (ICD-10 - E55.9) #Overweight: 134.6 lbs, BMI 24.4 She has done fantastic on Wegovy 2.4 mg. Weight is stable. She is very close to her goal weight. Discussed maintenance strategies. Continue with protein intake with a goal [...] Dictation was accomplished with the use of [employer] voice recognition software, prone to medical misidentifications [...] Dictation was accomplished with the use of [employer] voice recognition software, prone to medical misidentifications and grammatical errors. This is unintentional and the practitioner does try to identify and correct these, but some could still be present. Please do not hesitate to contact practitioner for clarification. All questions answered to patients satisfaction. Patient verbalized understanding of diagnosis and treatments explained. To call sooner prior to next visit it any questions/concerns arise. 10/20/2024 Weight loss counseling, encounter for (ICD-10 - Z71.3) #Overweight: 134.6 lbs, BMI 24.4 She has done fantastic on Wegovy 2.4 mg. Weight is stable. She is very close to her goal weight. Discussed maintenance strategies. Continue with protein intake with a goal [...] Dictation was accomplished with the use of [employer] voice recognition software, prone to medical misidentifications [...] Dictation was accomplished with the use of [employer] voice recognition software, prone to medical misidentifications and grammatical errors. This is unintentional and the practitioner does try to identify and correct these, but some could still be present. Please do not hesitate to contact practitioner for clarification. All questions answered to patients satisfaction. Patient verbalized understanding of diagnosis and treatments explained. To call sooner prior to next visit it any questions/concerns arise. 10/20/2024 Weight loss counseling, encounter for (ICD-10 - Z71.3) #Overweight: 134.5 lbs, BMI 24.4 She has done fantastic on Wegovy 2.4 mg. Weight is stable. In maintenance strategies. Continue with protein intake with a goal of 70 to 80 g a day. Continue regular exercise. Follow up 6 weeks, sooner as needed. #Hypertension: Currently well controlled on current regimen. Follow with PCP. May be interested in changing her PCP to us as well. #Hyperlipidemia: Follow with PCP. Has been much [...] 4-6 weeks time to monitor weight loss. 30 minutues spent with patient, >50% in coordination of care. Case discussed with collaborating physician Tanner Mccarthy who reviewed the assessment and plan. Chart, medications, labs, vital signs reviewed. Dictation was accomplished with the use of [employer] voice recognition software, prone to medical misidentifications and grammatical errors. This is unintentional and the practitioner does try to identify and correct these, but some could still be present. Please do not hesitate to contact practitioner for clarification. All questions answered to patients satisfaction. Patient verbalized understanding of diagnosis and treatments explained. To call sooner prior to next visit it any questions/concerns arise. 08/25/2024 Weight loss counseling, encounter for (ICD-10 - Z71.3) #Overweight: 134.6 lbs, BMI 24.4 She has done fantastic on Wegovy 2.4 mg. Weight is stable. She is very close to her goal weight. Discussed maintenance strategies. Continue with protein intake with a goal [...] Dictation was accomplished with the use of [employer] voice recognition software, prone to medical misidentifications and grammatical errors. This is unintentional and the practitioner does try to identify and correct these, but some could still be present. Please do not hesitate to contact practitioner for clarification. All questions answered to patients satisfaction. Patient verbalized understanding of diagnosis and treatments explained. To call sooner prior to next visit it any questions/concerns arise. 06/23/2024 Weight loss counseling, encounter for (ICD-10 - Z71.3) #Overweight: 134.9lbs, BMI 24.5 She has done fantastic on Wegovy 2.4 mg. Weight is stable. She is very close to her goal weight. Discussed maintenance strategies. Continue with protein intake with a goal of 70 to 80 g a day. Continue regular exercise. Follow up 6-8 weeks, sooner as needed. #Hypertension: Currently well controlled on current regimen. Follow with PCP. BP has been on the lower side, asymptomatic. Will discuss decreasing meds with PCP. #Hyperlipidemia: Follow with PCP. Has been much improved. #Vitamin D deficiency- On supplementation. The patient [...] Dictation was accomplished with the use of [employer] voice recognition software, prone to medical misidentifications and grammatical errors. This is unintentional and the practitioner does try to identify and correct these, but some could still be present. Please do not hesitate to contact practitioner for clarification. All questions answered to patients satisfaction. Patient verbalized understanding of diagnosis and treatments explained. To call sooner prior to next visit it any questions/concerns arise. 05/12/2024 Weight loss counseling, encounter for (ICD-10 - Z71.3) #Overweight: 134.2 lbs, BMI 24.3. She has done fantastic on Wegovy 2.4 mg. She is down an additional 5 pounds. She is very close to her goal weight. Discussed maintenance strategies. Continue with protein intake with a goal of 70 to 80 g a day. Encouraged to incorporate resistance training into her regimen as well. Follow-up in 6 weeks sooner with any concerns. #Hypertension: Currently well controlled on current regimen. Follow with PCP. #Hyperlipidemia: Follow with PCP. #Vitamin D deficiency- On supplementation. The patient [...] Dictation was accomplished with the use of [employer] voice recognition software, prone to medical misidentifications and grammatical errors. This is unintentional and the practitioner does try to identify and correct these, but some could still be present. Please do not hesitate to contact practitioner for clarification. All questions answered to patients satisfaction. Patient verbalized understanding of diagnosis and treatments explained. To call sooner prior to next visit it any questions/concerns arise. 05/12/2024 Vitamin D deficiency (ICD-10 - E55.9) #Overweight: 139.9 lbs, BMI 25.4 Doing well on Wegovy 2.4 without side effects. Weight is plateauing a bit. Discussed increasing weight training, increase protein intake to 70-80 g/day. Will also give AEL today. Reviewed updated SECA. Reviewed importance of protein intake, hydration, regular exercise/weight training. Follow up in 6 weeks, sooner with any concern. #Hypertension: Currently well controlled on current regimen. Follow with PCP. #Hyperlipidemia: Labs reviewed. TG elevated. Discussed lifestyle modifications. Follow with PCP. #Vitamin D deficiency- Low at 26 on recent labs. Discussed supplementation. The patient will continue exercise regimen [...] Dictation was accomplished with the use of [employer] voice recognition software, prone to medical misidentifications and grammatical errors. This is unintentional and the practitioner does try to identify and correct these, but some could still be present. Please do not hesitate to contact practitioner for clarification. All questions answered to patients satisfaction. Patient verbalized understanding of diagnosis and treatments explained. To call sooner prior to next visit it any questions/concerns arise. 03/30/2024 Vitamin D deficiency (ICD-10 - E55.9) #Overweight: 139.9 lbs, BMI 25.4 Doing well on Wegovy 2.4 without side effects. Weight is plateauing a bit. Discussed increasing weight training, increase protein intake to 70-80 g/day. Will also give ALE today. Reviewed updated SECA. Reviewed importance of protein intake, hydration, regular exercise/weight training. Follow up in 6 weeks, sooner with any concern. #Hypertension: Currently well controlled on current regimen. Follow with PCP. #Hyperlipidemia: Labs reviewed. TG elevated. Discussed lifestyle modifications. Follow with PCP. #Vitamin D deficiency- Low at 26 on recent labs. Discussed supplementation. The patient will continue exercise regimen [...] Dictation was accomplished with the use of [employer] voice recognition software, prone to medical misidentifications and grammatical errors. This is unintentional and the practitioner does try to identify and correct these, but some could still be present. Please do not hesitate to contact practitioner for clarification. All questions answered to patients satisfaction. Patient verbalized understanding of diagnosis and treatments explained. To call sooner prior to next visit it any questions/concerns arise. 05/12/2024 Weight loss counseling, encounter for (ICD-10 - Z71.3) #Overweight: 139.9 lbs, BMI 25.4 Doing well on Wegovy 2.4 without side effects. Weight is plateauing a bit. Discussed increasing weight training, increase protein intake to 70-80 g/day. Will also give ALE today. Reviewed updated SECA. Reviewed importance of protein intake, hydration, regular exercise/weight training. Follow up in 6 weeks, sooner with any concern. #Hypertension: Currently well controlled on current regimen. Follow with PCP. #Hyperlipidemia: Labs reviewed. TG elevated. Discussed lifestyle modifications. Follow with PCP. #Vitamin D deficiency- Low at 26 on recent labs. Discussed supplementation. The patient will continue exercise regimen [...] Dictation was accomplished with the use of [employer] voice recognition software, prone to medical misidentifications and grammatical errors. This is unintentional and the practitioner does try to identify and correct these, but some could still be present. Please do not hesitate to contact practitioner for clarification. All questions answered to patients satisfaction. Patient verbalized understanding of diagnosis and treatments explained. To call sooner prior to next visit it any questions/concerns arise. 03/30/2024 Weight loss counseling, encounter for (ICD-10 - Z71.3) #Overweight: 139.9 lbs, BMI 25.4 Doing well on Wegovy 2.4 without side effects. Weight is plateauing a bit. Discussed increasing weight training, increase protein intake to 70-80 g/day. Will also give ALE today. Reviewed updated SECA. Reviewed importance of protein intake, hydration, regular exercise/weight training. Follow up in 6 weeks, sooner with any concern. #Hypertension: Currently well controlled on current regimen. Follow with PCP. #Hyperlipidemia: Labs reviewed. TG elevated. Discussed lifestyle modifications. Follow with PCP. #Vitamin D deficiency- Low at 26 on recent labs. Discussed supplementation. The patient will continue exercise regimen [...] Dictation was accomplished with the use of [employer] voice recognition software, prone to medical misidentifications [...] it any questions/concerns arise. PLAN OF TREATMENT Pending Test Test Name Order Date 25OH VITAMIN D 02/04/2024 CBC (COMPLETE BLOOD COUNT) 02/04/2024 COMPREHENSIVE METABOLIC PANEL 02/04/2024 HEMOGLOBIN A1C 02/04/2024 LIPID PANEL 02/04/2024 Next Appt Details Provider Name:Nya Louis, 0 02/10/2025 08:00:00 AM, [address], [place], [address], Insurance Providers Payer Name Payer Address Payer Phone Subscriber Number Group Number Insured Name Patient Relationship to Insured Coverage Start Date Coverage End Date [facility] [address] [place] [address] [id number] Zita Tapia Self - patient is the insured MEDICATIONS ADMINISTERED Medication Instructions Date of Administration Dosage Notes MICC B12 INJECTION 03/30/2024 LOT#[id number] Semaglutide 07/31/2023 lot#[id number] 0.25mg Semaglutide 08/06/2023 0.25 mg LRQ SQ Semaglutide 08/15/2023 0.5 mg LRQ SQ Semaglutide 08/22/2023 0.5 mg LRQ SQ Semaglutide 09/04/2023 Semaglutide 09/10/2023 0.5 mg LRQ SQ Semaglutide 09/17/2023 1.0 mg LRQ SQ Semaglutide 09/24/2023 Semaglutide 10/03/2023 Semaglutide 10/23/2023 1 mL MEDICAL (GENERAL) HISTORY Medical History History ICD Code HTN high cholesterol weight gain gallbladder disease seasonal allergies basal carcinoma cystocele/recetocele Surgical History Surgery Date(Month/Year) [facility] surgery
[2025-01-24 23:59] LABS: Alanine Aminotransferase 20 U/L (0-31); Albumin Level 3.8 g/dL (3.5-5.0); Alkaline Phosphatase 48 U/L (39-117); Anion Gap 12 (12-20); Aspartate Amino Transferase 23 U/L (5-31); Bilirubin Total 0.4 mg/dL (0.0-1.0); Blood Urea Nitrogen 16 mg/dL (9-16); Calcium 8.6 mg/dL (8.4-10.2); Carbon Dioxide 22 mmol/L (22-29); Chloride 109 mmol/L (96-108); Estimated Glomerular Filt Rate > 60; Glucose Random 108 mg/dL (60-115); Potassium 4.2 mmol/L (3.3-5.1); Sodium 139 mmol/L (135-145); Total Protein 6.6 g/dL (6.5-8.0)
--- NOTE | 2025-01-25 00:02 | ED_ITS ---
HPI - Chest Pain General Chief Complaint: Chest Pain Stated Complaint: CHEST PRESSURE, NITRO+ASPIRIN PER EMS Time Seen by Provider: 01/25/25 00:02 Source: patient Mode of arrival: EMS Limitations: no limitations History of Present Illness ED Provider: Dr. Elmer Thompson HPI narrative: 54-year-old female with a history of hypertension, hyperlipidemia , cholecystectomy who presents emergency department for evaluation of gradual onset of left-sided chest pain. Patient states That she ate a very rich, creamy soup for dinner at around 20:00 hours and was experiencing and upset stomach . She states that around 22:00 hours while she was watching television , she had a gradual onset of left-sided chest pain / pressure. She points to her left anterior chest when asked to localize the pain. She states that the pain was 5/10 at its worse and may have radiated to her back. She denied neck, jaw or arm pain. She denied diaphoresis, nausea or vomiting associated with the chest pain. She states that this is her 1st episode of pain. patient states that she then looked up symptoms of heart attack and she believes that this may have made her feel worse. patient was daughter states the patient looked very shaky and then the patient asked her family to call 911. Patient was given aspirin orally and 1 nitroglycerin sublingually by the paramedics which caused the patient's blood pressure to drop, the patient states that she started to lose her vision and felt like she was going to pass out. By the time she got to the emergency department she states that her chest pain improved but has not completely resolved in his currently 2/10. Patient denies going on a long trips, she was not noticed any pain or swelling in her lower extremities, she was not on estrogen replacement therapy or estrogen supplements Related Data Home Medications ?Medication ?Instructions ?Recorded ?Confirmed cetirizine 10 mg capsule (Zyrtec) 10 mg PO DAILY 09/01/20 06/07/22 lisinopril 5 mg tablet 5 mg PO DAILY 09/01/20 06/07/22 montelukast 10 mg tablet 10 mg PO DAILY 09/01/20 06/07/22 (Singulair) rosuvastatin 5 mg tablet 5 mg PO DAILY 06/07/22 06/07/22 Allergies Allergy/AdvReac Type Severity Reaction Status Date / Time amoxicillin [AMOXICILLIN] Allergy Mild RASH Verified 01/24/25 22:45 Review of Systems 2 Review of Systems: Yes all other systems are reviewed and are negative [facility] Past Medical History [facility] Narrative: social history: The patient was in her is here in the emergency department. Her 2 children are also here in the emergency department with her. The denies tobacco use. Patient states that she does drink 2-3 alcoholic beverages ( wine/szymanski) 3 times a week. 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 Exam: General: Awake, alert in no distress Head: Normocephalic, atraumatic EENT: PERRL, Lids normal, sclera normal, conjunctiva normal, nose normal , ears normal, throat without erythema or exudates Neck: Supple, no adenopathy Lung: breath sounds symmetric, no wheezing, rales or rhonchi Chest: symmetric movement, moderate left costochondral joint tenderness Heart: regular rate and rhythm, normal S1, S2 no murmurs or rubs Abdomen: soft, mild to moderate diffuse tenderness, no right upper quadrant right lower quadrant tenderness, nondistended, normal bowel sounds Back: no vertebral tenderness, no CVAT Extremities: no deformities, moves all extremities symmetrically Neuro: Awake, alert, oriented, normal speech, cranial nerves intact, moves all extremities symmetrically Psych: Pleasant, cooperative Medications Administered Discontinued Medications Generic Name Dose Route Start Last Admin Trade Name Daniel PRN Reason Stop Dose Admin Ketorolac Tromethamine 15 mg 01/25/25 00:28 01/25/25 00:32 Ketorolac Tromethamine 15 Mg/Ml Vial IVPUSH 01/25/25 00:29 15 mg ONCE STA Administration Ondansetron HCl 4 mg 01/25/25 00:28 01/25/25 00:32 Ondansetron Hcl 4 Mg/2 Ml Vial IVPUSH 01/25/25 00:29 4 mg ONCE ONE Administration Medical Decision Making Medical Decision Making [facility] Narrative: 54-year-old female with a history of hypertension, hyperlipidemia , cholecystectomy who presents emergency department for evaluation of gradual onset of left-sided anterior,chest pain. Patient states That she ate a very rich, creamy soup for dinner at around 20:00 hours and was experiencing and upset stomach . She states that around 22:00 hours while she was watching television , she had a gradual onset of left-sided chest pain / pressure, 5/10 at its worse possibly radiating to her back with no other concerning symptom. patient She states that this is her 1st episode of pain. she then looked up symptoms of heart attack and she believes that this may have made her feel worse. patient became shaky and requested that her family call 911. Patient was aspirin and nitroglycerin EN route, nitroglycerin mid the patient was hypotensive and she had a near syncopal episode. at the time my evaluation the patient was states that the pain is 2/10 and has been present for proximally 2- 1/2 hours. Vital signs were normal. Physical examination did reveal left anterior chest tenderness over the costochondral joints and diffuse abdominal tenderness with no localizing tenderness Differential diagnosis: Includes but is not limited to myocardial infarction, myocardial ischemia, aortic dissection, costochondritis,gastritis, pancreatitis, anxiety, electrolyte abnormalities, anemia Course: 00:44 my interpretation patient's laboratory evaluation is as follows: WBC was normal 7000. Normocytic anemia with an H&H of 11.6 and 33.5. CMP was normal. Lipase was normal. High sensitive troponin I was below detectable limits. COVID-19, influenza and RSV were negative. lipase was negative. Twelve EKG revealed no [address] segment elevation or depression or other signs of ischemia. Chest x-ray on my reading revealed no acute disease with a normal- appearing mediastinum. Given the fact that the patient has had pain for proximally 2-1/2 hours, it is reassuring that her initial troponin was negative but I did order a repeat 3 hour troponin at 02:30 hours. I suspect that the patient's pain may be caused by costochondritis therefore I ordered Toradol 15 mg IV and Zofran 4 mg IV 02:35 Patient states that her pain is completely resolved after the above treatment. Patient's 3 hour troponin was also below detectable limits suggesting that the patient's chest pain is not caused by myocardial infarction myocardial injury. Patient was given printed and verbal instructions and discharged home. Admission/Observation Consideration of admission/observation: Escalation of care including admission/observation considered ( yes) Lab Data MDM Lab Attestation statement: I reviewed the patient's lab results. 01/24/25 23:38 01/24/25 23:38 Labs: Lab Results 01/24/25 01/25/25 Range/Units 23:38 02:28 WBC 7.0 (4.8-10.8) X10*3/uL RBC 3.67 L (4.20-5.50) X10*6/uL Hgb 11.6 L (12.0-16.0) g/dl Hct 33.5 L (37.0-47.0) % MCV 91.3 (80.0-98.0) fL MCH 31.6 (27.0-33.0) pg MCHC 34.6 (31.0-35.0) g/dl RDW 12.1 (11.0-16.0) % Plt Count 241 (160-400) X10*3/uL MPV 9.0 L (9.4-12.3) fL Immature Gran % (Auto) 0.1 (0.0-0.4) % Neut % (Auto) 57.9 (45-73) % Lymph % (Auto) 31.2 (20-40) % [place] % (Auto) 8.2 (2-11) % Eos % (Auto) 2.2 (0-4) % Baso % (Auto) 0.4 (0-2) % Lymph # (Auto) 2.2 (1.2-4.9) X10*3/uL [place] # (Auto) 0.6 (0.1-1.2) X10*3/uL Eos # (Auto) 0.2 (0.0-0.4) X10*3/uL Baso # (Auto) 0.0 (0.0-0.2) X10*3/uL Abs Immat Gran (auto) 0.01 (0.00-0.03) X10*3/uL Absolute Neuts (auto) 4.0 (2.0-8.3) x10*3/uL Absolute Nucleated RBC 0.000 (0.0-0.012) X10*3/uL Nucleated RBC % (auto) 0.0 (0.0-0.2) /100WBC Sodium 139 (135-145) mmol/L Potassium 4.2 (3.3-5.1) mmol/L Chloride 109 H (96-108) mmol/L Carbon Dioxide 22 (22-29) mmol/L Anion Gap 12 (12-20) BUN 16 (9-16) mg/dL Creatinine 0.89 (0.5-1.4) mg/dL Estim Creat Clear Calc 62.0 Estimated GFR > 60 Random Glucose 108 (60-115) mg/dL Calcium 8.6 D (8.4-10.2) mg/dL Total Bilirubin 0.4 (0.0-1.0) mg/dL AST 23 (5-31) U/L ALT 20 (0-31) U/L Alkaline Phosphatase 48 (39-117) U/L Troponin I High Sens < 2.7 < 2.7 (<3.5-17.0) ng/L Total Protein 6.6 (6.5-8.0) g/dL Albumin 3.8 (3.5-5.0) g/dL Lipase 18 (8-78) U/L Influenza Type A (PCR) NEGATIVE (Negative) Influenza Type B (PCR) NEGATIVE (Negative) RSV RNA Qual (PCR) NEGATIVE (Negative) SARS-CoV-2 RNA (RT-PCR) NEGATIVE (Negative) Independent Interpretation I performed an independent interpretation of an: EKG Interpretation: My independent interpretation patient's 12 25 at 23:25 hours is as follows: Sinus rhythm with a rate of 68, normal OH interval, QRS duration and QTC interval, no ST segment elevation, no ST segment depression, flattened T-waves in 3, AVF, no PACs, no PVCs My independent interpretation of the patient's two view chest x-ray is as follows: No acute disease, normal mediastinum Independent Historian Clinical information obtained from an independent historian. History obtained from or confirmed by: Spouse and Other ( son and daughter) Chronic Conditions Patient?s care impacted by: Other ( hyperlipidemia) Discharge Plan Discharge Clinical Impression: Acute costochondritis Patient Disposition: Still a Patient Instructions: Costochondritis (ED) Additional Instructions: Your blood work was unremarkable. Your EKG was normal. Chest x-ray was normal. At this time, I believe that your chest pain was caused by inflammation of the joints of your chest (costochondritis). Take ibuprofen 200 mg pills, 2 pills 3 times a day for 4 days to reduce the inflammation in your chest joints. Continue taking your other medications as prescribed by your providers. Follow-up with your doctor in 2 days. Please return to the emergency department if your symptoms get worse or if you develop any symptoms that are concerning to you. Prescriptions: No Action lisinopril 5 mg tablet 5 mg PO DAILY montelukast [Singulair] 10 mg tablet 10 mg PO DAILY Zyrtec 10 mg capsule 10 mg PO DAILY rosuvastatin 5 mg tablet 5 mg PO DAILY Interventions: ED Discharge Assessment Last Done: 01/25/25 03:20 Discharge Date/Time: 01/25/25 03:22 Print Language: Upper Sorbian
[2025-01-25 00:05] LABS: Troponin-I High Sensitivity < 2.7 ng/L (<3.5-17.0)
[2025-01-25 00:21] VITALS: BP 111/71; PULSE 69; RESP 15; O2SAT 96
[2025-01-25 00:21] LABS: Influenza A PCR NEGATIVE (Negative); Influenza B PCR NEGATIVE (Negative); Resp Syncy Virus RNA Qual PCR NEGATIVE (Negative); SARS COV2 PCR INHOUSE NEGATIVE (Negative)
[2025-01-25] MEDS: ondansetron HCL 4 MG/2 ML VIAL IVPUSH (00:32)
[2025-01-25] MEDS: Ketorolac Tromethamine 15 MG/ML VIAL IVPUSH (00:32)
[2025-01-25 00:43] LABS: Lipase 18 U/L (8-78)
[2025-01-25 02:03] VITALS: BP 103/71; PULSE 84; RESP 18; O2SAT 97
[2025-01-25 02:53] LABS: Troponin-I High Sensitivity < 2.7 ng/L (<3.5-17.0)
[2025-01-25 03:20] VITALS: BP 103/71; PULSE 84; RESP 18; TEMP 36.7; O2SAT 97
== END 2025-01-25 03:22 | disposition home or self-care (01) ==
PROVIDERS: Emergency Provider Emergency Medicine Emergency Medical Services; PCP Internal Medicine
DX: M94.0 Chondrocostal junction syndrome [Tietze] (principal); R07.89 Other chest pain; M54.50 Low back pain, unspecified; D64.9 Anemia, unspecified; Z79.899 Other long term (current) drug therapy; Z03.818 Encounter for observation for suspected exposure to other biological agents ruled out
CPT/HCPCS: 0241U; 36415; 71046; 80053; 83690; 84484; 85025; 93005; 96374; 96375; 99284; J1885; J2405

== ENCOUNTER → 2025-01-24 22:54 | Outpatient (BNV) | payer BC, SELFPAY | PROVIDERS: Emergency Provider Emergency Medicine Emergency Medical Services; PCP Internal Medicine; Visit Provider Radiology Diagnostic Radiology | DX: R07.9 Chest pain, unspecified (principal) | CPT/HCPCS: 71046 ==

== ENCOUNTER → 2025-01-24 22:54 | Outpatient (BNV) | payer BC, SELFPAY | PROVIDERS: Emergency Provider Emergency Medicine Emergency Medical Services; PCP Internal Medicine; Visit Provider Internal Medicine | DX: R94.31 Abnormal electrocardiogram [ECG] [EKG] (principal); R07.9 Chest pain, unspecified | CPT/HCPCS: 93010 ==